=== PATIENT | female | born 1995 | race Hispanic/Latino ===

== ENCOUNTER 2018-06-21 04:01 | Inpatient (IN) | payer OTHER ==
[2018-06-21] MEDS ORDERED: BUTORPHANOL 1 MG/ML INJ IV PRN (04:05)
[2018-06-21] MEDS ORDERED: Ringers Lactate 1,000 ML IV PRN (04:05)
[2018-06-21] MEDS ORDERED: CARBOPROST TROME 250 MCG/ML IM PRN (04:05)
[2018-06-21] MEDS ORDERED: MIDAZOLAM HCL 2 MG/2 ML INJ IV PRN (04:05)
[2018-06-21] MEDS ORDERED: METHYLERGONOVINE 0.2MG/ML AMP IM PRN (04:05)
[2018-06-21] MEDS ORDERED: MEPERIDINE HCL 25 MG/0.5 ML IV PRN (04:05)
[2018-06-21] MEDS ORDERED: PROMETHAZINE 25 MG/ML VIAL IM PRN (04:05)
[2018-06-21 04:59] LABS: RPR Titer ND
[2018-06-21] MEDS ORDERED: Ringers Lactate 1,000 ML IV SCH (05:00)
[2018-06-21] MEDS ORDERED: OXYTOCIN/LR 20 UNIT/1,000 ML BAG IV SCH ×2 (05:00→13:00)
[2018-06-21 05:38] LABS: Absolute Lymphocytes (CBC) 3.3 K/uL (0.7-4.9); Absolute Monocytes 0.5 K/uL (0.1-1.3); Absolute Neutrophil 5.5 K/uL (1.8-8.0); Basophils % 0.6 % (0-1.3); Eosinophils % 0.9 % (0-4.4); Lymphocytes % 35.2 % (15.3-44.8); MCH 29.6 pg (27.0-35.0); MCV 85.2 fL (80-100); MPV 9.7 fL (7.6-11.3); Monocytes % 5.5 % (3.3-12.3); RBC Red Blood Cell Count 4.11 M/uL (3.86-4.86)
[2018-06-21 05:49] LABS: Urine Appearance CLOUDY; Urine Bilirubin NEGATIVE (NEG); Urine Blood NEGATIVE (NEG); Urine Color YELLOW; Urine Glucose NEGATIVE (NEG); Urine Protein TRACE (NEG); Urine Specific Gravity 1.025 (1.005-1.030); Urine Urobilinogen 0.2 mg/dL (0.2-1.0)
[2018-06-21 05:50] VITALS: BMI 38.4
[2018-06-21 05:53] LABS: Urine Microscopic Reflex ORDER UMIC
[2018-06-21 06:08] LABS: Urine Bacteria >50 /HPF (<20); Urine Culture Reflex Order REFLEXED; Urine Mucus 3+ /HPF (NONE SEEN); Urine RBC <5 /HPF (NONE SEEN)
[2018-06-21] MEDS ORDERED: FENTANYL/BUPIVACAINE/NS/PF 200 MCG/100 ML BAG EP PRN (07:21)
[2018-06-21] MEDS ORDERED: FENTANYL CITR 100 MCG/2 ML IV ONE (07:21)
[2018-06-21] MEDS ORDERED: BUPIVACAINE 0.25% PF 30 ML VIAL ONE (07:55)
[2018-06-21] MEDS ORDERED: FENTANYL CITR 100 MCG/2 ML ONE (12:07)
--- NOTE | 2018-06-21 12:24 | PREOPHP ---
Date of Admission: 06/21/2018 A 23-year-old 2, para 1, 39 weeks 2 days, for labor induction. Now 4.5 to 5 cm derrick r egularly. FHTs normal, reactive. Rh positive, immune to Rubella. Negative beta strep screen. Rupt ure of membranes. Labor talk given. Anticipate delivery relatively soon. Epidural anesthesia has b een requested and we will start hydration and get Anesthesia appear within the next half hour or so. RAYMOND/PADMINI Voice ID: [id number]
[2018-06-21] MEDS ORDERED: BISACODYL 10 MG RECTAL SUPP RECT PRN (12:57)
[2018-06-21] MEDS ORDERED: Oxycodone HCl/Acetaminophen 1 TAB TAB PO PRN (12:57)
[2018-06-21] MEDS ORDERED: DOCUSATE NA/SENNA CONC 1 TAB PO PRN (12:57)
[2018-06-21] MEDS ORDERED: ACETAMINOPHEN 500 MG TAB PO PRN (12:57)
[2018-06-21] MEDS ORDERED: DIPHENHYDRAMINE 25 MG TAB/CAP PO PRN (12:57)
--- NOTE | 2018-06-21 16:45 | PN ---
The patient is now 9, 9+, 0 to almost +1 station. Hope regularly. Baby looks good. Epidural is at 10 mL an hour. She says she is starting to feel some perineal discomfort. We will get Anesth esia to top her up, but we do not want her so numb, she cannot push. Full discussion. RAYMOND/PADMINI Voice ID: [id number] Report ID: [id number]
[2018-06-21] MEDS: IBUPROFEN 200 MG TAB PO PRN (21:01)
[2018-06-21 21:14] LABS: RPR (Rapid Plasma Reagin) NON-REACT (NON-REACT)
[2018-06-21] MEDS: Oxycodone HCl/Acetaminophen 1 TAB TAB PO PRN (23:36)
[2018-06-22] MEDS: IBUPROFEN 200 MG TAB PO PRN ×2 (03:00→13:15)
[2018-06-22] MEDS: Oxycodone HCl/Acetaminophen 1 TAB TAB PO PRN (05:17)
[2018-06-22 13:55] VITALS: BP 116/68; TEMP 97.5
[2018-06-24 20:43] LABS: HBsAG Nonreactive (Nonreactive)
--- NOTE | 2018-06-30 18:29 | DS ---
Date of Discharge: 06/22/2018 A 23-year-old 2, para 1, 39 weeks 2 days, Rh positive, immune to Rubella, negative beta strep screen, had uneventful delivery of a term , Apgars 9 and 9, routine blood loss. Epidural anes thesia was established. was afebrile, ambulating, voiding. Lochia is normal. The patien t dismissed to return in my office in 6 weeks for followup, to report any temperature elevation of 10 0 degrees or greater, severe pain, heavy bleeding, or any other type of abnormalities. No post epidu ral problems. Was given tramadol for analgesia although she may elect to take Motrin instead. Final Diagnoses: Term intrauterine , 39 weeks 2 days, vaginal delivery, epidural anesthesia . RAYMOND/PADMINI Voice ID: [id number] Report ID: [id number]
== END 2018-06-22 15:00 | disposition home or self-care (01) | DRG 807 ==
LOC: 2ND-WC 04:01
PROVIDERS: ADMIT Specialist; ATTEND Specialist
PROC: 10E0XZZ Delivery of Products of Conception, External Approach (ICD-10-PCS; principal; 2018-06-21)
PROC: 10907ZC Drainage of Amniotic Fluid, Therapeutic from Products of Conception, Via Natural or Artificial Opening (ICD-10-PCS; 2018-06-21)
DX: O80 Encounter for full-term uncomplicated delivery (principal); Z37.0 Single live birth; Z3A.39 39 weeks gestation of pregnancy
CPT/HCPCS: 36415; 81003; 81015; 85025; 86592; 87086; 87088; 87340; 99218; J2210; J2590; J3010

== ENCOUNTER 2020-12-02 21:03 | Emergency (ER) | payer OTHER, SELFPAY ==
--- OUTSIDE RECORDS SUMMARY | 2020-12-02 21:09 | XMS REPORT | Continuity of Care Document ---
:1995 Author Organization [facility] t Address [address] [place] [address] Care Team Providers Name Role Phone Wu Pleitez DO Attending Clinician Reynaldo FOSS Attending Clinician Unknown Attending Clinician Unavailable Dhruv FOSS, Gisela Attending Clinician Problems This patient has no known problems. Allergies, Adverse Reactions, Alerts This patient has no known allergies or adverse reactions. Medications This patient has no known medications. Procedures This patient has no known procedures. Encounters Start End Encounter Admission Attending Care Care Encounter Source Date/Time Date/Time Type Type Clinicians Facility Department ID 2020-10-01 2020-10-01 Patient SHIVAM Pleitez [id number] 00:00:00 00:00:00 [facility] [id number] Wu [facility] [id number] [place] [id number] 2019-11-09 2019-11-10 Emergency SHIVAM Jacobs [id number] 22:54:39 01:56:00 Angel Lara [id number] [place] [id number] [place] [id number] 2019-11-10 2019-11-10 Telephone Az, SHIVAM [id number] 00:00:00 00:00:00 Attending SPECIALTY [id number] [facility] [id number] CENTER AT [id number] ASHLEY Delgadillo [facility] 2019-09-05 2019-09-05 Office SHIVAM Bartlett [id number] 10:25:30 11:35:37 Visit Tracie Higgins [facility] [id number] REGIONAL [id number] MATERNAL [id number] & CHILD [address] [place] [place] [address] Results This patient has no known results.
--- NOTE | 2020-12-02 22:35 | EDPHYS ---
Physician Documentation [facility] Name: Tawnya García Age: 25 yrs Sex: Female : 1995 Arrival Date: 12/02/2020 Time: 21:09 Bed 4 Private MD: ED Physician Yovani Hernandez HPI: 12/03 04:48 This 25 yrs old Female presents to ER via Wheelchair with complaints of Ankle tw4 Injury. 04:48 The patient presents with an injury, pain. The complaints affect the left ankle. Onset: tw4 The symptoms/episode began/occurred today. Context: The problem was sustained at home, resulted from a mis-step by the patient. Context: resulted from a mis-step by the patient, on a floor edge. Associated signs and symptoms: The patient has no apparent associated signs or symptoms. Modifying factors: The symptoms are alleviated by nothing, the symptoms are aggravated by weight bearing, heat, movement, wearing shoes. Severity of symptoms: At their worst the symptoms were moderate, in the emergency department the symptoms are unchanged. The patient has not experienced similar symptoms in the past. 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 Flu vaccine is not up to date. - Social history:: Smoking status: Reported history of juuling and/or vaping. ROS: 12/03 04:48 Constitutional: Negative for fever, chills, and weight loss, Eyes: Negative for injury, tw4 pain, redness, and discharge, Cardiovascular: Negative for chest pain, palpitations, and edema, Respiratory: Negative for shortness of breath, cough, wheezing, and pleuritic chest pain, Abdomen/GI: Negative for abdominal pain, nausea, vomiting, diarrhea, and constipation, Back: Negative for injury and pain, Skin: Negative for injury, rash, and discoloration, Neuro: Negative for headache, weakness, numbness, tingling, and seizure. MS/extremity: Positive for injury or acute deformity, pain, swelling, tenderness, Negative for abrasion, bite, contusion, deformity, ecchymosis, erythema, laceration, puncture, rash. Exam: 04:48 Constitutional: This is a well developed, well nourished patient who is awake, alert, tw4 and in no acute distress. Head/Face: Normocephalic, atraumatic. Chest/axilla: Normal chest wall appearance and motion. Nontender with no deformity. No lesions are appreciated. Cardiovascular: Regular rate and rhythm with a normal S1 and S2. No gallops, murmurs, or rubs. Normal PMI, no JVD. No pulse deficits. Respiratory: Lungs have equal breath sounds bilaterally, clear to auscultation and percussion. No rales, rhonchi or wheezes noted. No increased work of breathing, no retractions or nasal flaring. Skin: Warm, dry with normal turgor. Normal color with no rashes, no lesions, and no evidence of cellulitis. Neuro: Awake and alert, GCS 15, oriented to person, place, time, and situation. Cranial nerves II-XII grossly intact. Motor strength 5/5 in all extremities. Sensory grossly intact. Cerebellar exam normal. Normal gait. 04:48 Musculoskeletal/extremity: Extremities: noted in the left lateral malleolus: decreased ROM, pain. Vital Signs: 12/02 21:27 Pulse 84; Resp 18 S; Temp 97.6(TE); Pulse Ox 95% on R/A; Weight 107.5 kg (R); Height 5 ca1 ft. 6 in. (167.64 cm) (R); Pain 7/10; 22:19 BP 126 / 85; Pulse 80; Resp 16; Pulse Ox 98% ; rr5 23:06 BP 121 / 70; Pulse 75; Resp 16; Pulse Ox 98% ; rr5 21:27 Body Mass Index 38.25 (107.50 kg, 167.64 cm) ca1 MDM: 21:51 Patient medically screened. tw4 12/03 04:48 Differential diagnosis: fracture, sprain. Data reviewed: vital signs, nurses notes, tw4 radiologic studies, plain films. Data interpreted: Pulse oximetry: Interpretation: normal. Test interpretation: by ED physician or midlevel provider: plain radiologic studies. Medication response: norco. Response to treatment: and as a result, I will discharge patient. Special discussion: I discussed with the patient/guardian in detail that at this point there is no indication for admission to the hospital. It is understood, however, that if the symptoms persist or worsen the patient needs to return immediately for re-evaluation. 12/02 21:30 Order name: Ankle Left 3 View XRAY ca1 12/02 22:53 Order name: Aircast Ankle Splint; Complete Time: 22:53 rr5 12/02 23:01 Order name: Crutches; Complete Time: 23:01 rr5 Administered Medications: 12/02 22:52 Drug: HYDROcodone-acetaminophen 5 mg-325 mg 1 tabs {Note: rass 0.} Route: PO; rr5 23:06 Follow up: Response: No adverse reaction; RASS: Alert and Calm (0) rr5 Disposition: 12/02/20 22:34 Discharged to Home. Impression: Sprain of tibiofibular ligament of left ankle. - Condition is Stable. - Discharge Instructions: Ankle Sprain. - Prescriptions for Ibuprofen 800 mg Oral Tablet - take 1 tablet by ORAL route every 12 hours As needed take with food; 20 tablet. - Medication Reconciliation Form, Thank You Letter, Antibiotic Education, Prescription Opioid Use, Work release form form. - Follow up: Private Physician; When: Upon discharge from the Emergency Department; Reason: Recheck today's complaints, Continuance of care, Re-evaluation by your physician. - Problem is new. - Symptoms have improved. Signatures: Dispatcher [employer] EDMS Yovani Hernandez MD MD tw4 Johnny Goyal RN RN rr5 Janel Borjas RN RN ca1 Corrections: (The following items were deleted from the chart) 22:53 22:33 Splint ordered. tw4 rr5 23:06 22:34 12/02/2020 22:34 Discharged to Home. Impression: Sprain of tibiofibular ligament rr5 of left ankle. Condition is Stable. Forms are Medication Reconciliation Form, Thank You Letter, Antibiotic Education, Prescription Opioid Use. Follow up: Private Physician; When: Upon discharge from the Emergency Department; Reason: Recheck today's complaints, Continuance of care, Re-evaluation by your physician. Problem is new. Symptoms have improved. tw4
--- NOTE | 2020-12-02 22:35 | ER ---
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 ca1 Coronavirus screen: Client denies travel out of the [place] in the last 14 days. At this time, the client does not indicate any symptoms associated with coronavirus-19. Ebola Screen: Patient negative for fever greater than or equal to 101.5 degrees Fahrenheit, and additional compatible Ebola Virus Disease symptoms Patient denies exposure to infectious person. Patient denies travel to an Ebola-affected area in the 21 days before illness onset. No symptoms or risks identified at this time. Initial Sepsis Screen: Does the patient meet any 2 criteria? No. Patient's initial sepsis screen is negative. Does the patient have a suspected source of infection? No. Patient's initial sepsis screen is negative. Risk Assessment: Do you want to hurt yourself or someone else? Patient reports no desire to harm self or others. Onset of symptoms was December 02, 2020. 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 Flu vaccine is not up to date. - Social history:: Smoking status: Reported history of juuling and/or vaping. Screenin:17 Abuse screen: Denies threats or abuse. Denies injuries from another. Nutritional rr5 screening: No deficits noted. Tuberculosis screening: No symptoms or risk factors identified. Fall Risk Gait- Impaired (20 pts.). Total Brizuela Fall Scale indicates No Risk (0-24 pts). Assessment: 22:15 General: Appears in no apparent distress. uncomfortable, Behavior is calm, cooperative, rr5 appropriate for age. Pain: Complains of pain in left foot left ankle Pain currently is 7 out of 10 on a pain scale. Quality of pain is described as aching, Pain began suddenly, Is intermittent. Neuro: Level of Consciousness is awake, alert, obeys commands, Oriented to person, place, time. Cardiovascular: Capillary refill < 3 seconds Patient's skin is warm and dry. Respiratory: Airway is patent Respiratory effort is even, unlabored, Respiratory pattern is regular, symmetrical. GI: No signs and/or symptoms were reported involving the gastrointestinal system. : No signs and/or symptoms were reported regarding the genitourinary system. EENT: No signs and/or symptoms were reported regarding the EENT system. Derm: Skin is intact, is healthy with good turgor, Skin temperature is warm. Musculoskeletal: Circulation, motion, and sensation intact. Capillary refill < 3 seconds. 22:56 Reassessment: Patient appears in no apparent distress at this time. Patient is alert, rr5 oriented x 3, equal unlabored respirations, skin warm/dry/pink. discharge instruction given and explained without complaints made. 23:05 Reassessment: reassess by ED provider may go home. rr5 Vital Signs: 21:27 Pulse 84; Resp 18 S; Temp 97.6(TE); Pulse Ox 95% on R/A; Weight 107.5 kg (R); Height 5 ca1 ft. 6 in. (167.64 cm) (R); Pain 7/10; 22:19 BP 126 / 85; Pulse 80; Resp 16; Pulse Ox 98% ; rr5 23:06 BP 121 / 70; Pulse 75; Resp 16; Pulse Ox 98% ; rr5 21:27 Body Mass Index 38.25 (107.50 kg, 167.64 cm) ca1 ED Course: 21:09 Patient arrived in ED. es 21:28 Triage completed. ca1 21:29 Arm band placed on right wrist. ca1 21:49 Johnny Goyal RN is Primary Nurse. rr5 21:51 Yovani Hernandez MD is Attending Physician. tw4 22:04 Ankle Left 3 View XRAY In Process Unspecified. EDMS 22:18 Patient has correct armband on for positive identification. Bed in low position. Call rr5 light in reach. Pulse ox on. NIBP on. 22:18 Ice pack to injury. rr5 22:53 No provider procedures requiring assistance completed. Patient did not have IV access rr5 during this emergency room visit. air cast ankle splint left ankle. Administered Medications: 22:52 Drug: HYDROcodone-acetaminophen 5 mg-325 mg 1 tabs {Note: rass 0.} Route: PO; rr5 23:06 Follow up: Response: No adverse reaction; RASS: Alert and Calm (0) rr5 Outcome: 22:34 Discharge ordered by . tw4 23:06 Discharged to home via wheelchair, with family. rr5 23:06 Condition: stable 23:06 Discharge instructions given to patient, Instructed on discharge instructions, follow up and referral plans. medication usage, Demonstrated understanding of instructions, follow-up care, medications, Prescriptions given X 1. 23:06 Patient left the ED. rr5 Signatures: Dispatcher [employer] Homa Sumner Terrence, MD MD tw4 Johnny Goyal RN RN rr5 Janel Borjas RN RN ca1
[2020-12-02] MEDS ORDERED: HYDROCODONE/APAP 5/325 MG TAB ONE (23:01)
[2020-12-03 00:26] VITALS: TEMP 97.6
[2020-12-03 00:28] VITALS: O2SAT 98
[2020-12-03 00:29] VITALS: BP 121/70
--- NOTE | 2020-12-03 10:07 | RAD REPORT ---
EXAM DESCRIPTION: RAD ANKLE LEFT 3 VIEW 12/02/20 TECHNIQUE: Three view x-ray left ankle FINDINGS: Soft tissue swelling is present. No fracture or dislocation is seen.
== END 2020-12-02 23:06 | disposition home or self-care (01) ==
LOC: ER 21:03
DX: S93.432A Sprain of tibiofibular ligament of left ankle, initial encounter (principal); X58.XXXA Exposure to other specified factors, initial encounter; Y92.009 Unspecified place in unspecified non-institutional (private) residence as the place of occurrence of the external cause
CPT/HCPCS: 99284

== ENCOUNTER 2021-08-25 02:12 | Inpatient (IN) | payer OTHER ==
[2021-08-25] MEDS ORDERED: BUTORPHANOL 1 MG/ML INJ IV PRN (03:30)
[2021-08-25] MEDS ORDERED: METHYLERGONOVINE 0.2MG/ML AMP IM PRN (03:30)
[2021-08-25] MEDS ORDERED: PROMETHAZINE INJ 25 MG/ML AMP IM PRN (03:30)
[2021-08-25] MEDS ORDERED: OXYTOCIN/LR 20 UNIT/1,000 ML BAG IV SCH ×2 (03:30→12:00)
[2021-08-25] MEDS ORDERED: Ringers Lactate 1,000 ML IV PRN (03:30)
[2021-08-25] MEDS ORDERED: CARBOPROST TROME 250 MCG/ML IM PRN (03:30)
--- OUTSIDE RECORDS SUMMARY | 2021-08-25 04:17 | XMS REPORT | Continuity of Care Document ---
:[address] [facility] [place] [place] t Address [address] [place] [address] Care Team Providers Name Role Phone PCP, DOES NOT HAVE A Primary Care Physician Unavailable Christopher PIKE Attending Clinician Unavailable Doctor Unassigned, Name Attending Clinician Unavailable Dhruv FOSS, N Attending Clinician Yadiel SETHI A Attending Clinician ProviderJoe Attending Clinician Unavailable Glendy SU, O Attending Clinician Wu Pleitez DO Attending Clinician REYNALDO Attending Clinician Unavailable Reynaldo OFSS Attending Clinician Unknown Attending Clinician Unavailable REYNALDO Admitting Clinician Unavailable Payers Payer Name Policy Type Policy Number Effective Date Expiration Date [facility] [id number] 2021 CHOICE MEDICAID 00:00:00 MEDICAID PENDING PENDING 2019 2021 00:00:00 00:00:00 Problems Condition Condition Condition Status Onset Resolution Last Treating Co mments Source Name Details Category Date Date Treatment Clinician Date Glucose Glucose Disease Active 2020-07 Univers tolerance tolerance 1-10 ity of test test 00:00: [place] abnormal abnormal 00 Medica l Branch Anemia of Anemia of Disease Active 2020-07 Uni vers mother in mother in 1-10 [place] ante[place] antepartum 00 Me dical Branch Pain of Pain of Disease Active 2020-07 [facility] round round 109 ity of ligament ligament 00:00: [place] during during 00 Medical Bran ch Multiparit Multiparit Disease Active U nivers y y 7-12 ity of 00:00: [place] 00 Medical Branch History of History of Disease Active U nivers migraine migraine 7-12 ity of 00:00: [place] 00 Medical Branch Obesity in Obesity in Disease Active U nivers 7-12 ity of 00:00: [place] 00 Medical Branch Need for Need for Disease Active Unive rs HPV HPV 2-25 [place] [facility] Allergies, Adverse Reactions, Alerts Allergy Allergy Status Severity Reaction(s) Onset Inactive Treating Comm ents Source Name Type Date Date Clinician NO KNOWN Drug Active Univers ALLERGIE Class ity of S [facility] Social History Social Habit Start Date Stop Date Quantity Comments Source ASSERTION 2020-12-07 University 00:00:00 [facility] History of tobacco 2014-09-05 Cigarette Smoker University of use 00:00:00 [facility] Exposure to Not sure [facility] SARS-CoV-2 (event) [facility] Alcohol intake 2021-05-21 2021-05-21 Ex-drinker [facility] 00:00:00 00:00:00 (finding) [facility] Cigarettes smoked 2021-01-20 2021-01-20 Univers ity of current (pack per 00:00:00 00:00:00 ) - Reported Branch Tobacco use and 2021-01-20 2021-01-20 Never used Universit y of exposure 00:00:00 00:00:00 [facility] Tobacco Comment 2021-01-20 2021-01-20 quit 1 year ago Univ ersity of 00:00:00 00:00:00 [facility] Sex [birth year] At [birth year] Universit y of 00:00:00 00:00:00 [facility] Smoking Status Start Date Stop Date Source Former smoker 2021-01-20 00:00:00 2021-01-20 00:00:00 Universi ty of [facility] Medications Ordered Filled Start Stop Current Ordering Indication Dosage Frequency Signature Comments Components Source Medication Medication Date Date Medication? Clinician (SIG) Name Name Iron Fum & 2020-07 Yes [id number] 1{capsu Take 1 Univers P-FA-Vit B 1-10 le} capsule by ity of & C No.9 00:00: mouth [place] (INTEGRA 00 daily. Medical PLUS) 125 Branch mg iron- 1 mg Cap Iron Fum & 2020-07 Yes [id number] 1{capsu Take 1 Univers P-FA-Vit B 1-10 le} capsule by ity of & C No.9 00:00: mouth [place] (INTEGRA daily. Medical PLUS) 125 Branch mg iron- 1 mg Cap Iron Fum & 2020-07 Yes [id number] 1{capsu Take 1 Univers P-FA-Vit B 1-10 le} capsule by ity of & C No.9 00:00: mouth [place] (INTEGRA 00 daily. Medical PLUS) 125 Branch mg iron- 1 mg Cap metroNIDAZO 2020-07- No [id number] 500mg Take 1 Univers LE 500 mg 07-20 tablet by ity of tablet 00:00: 05:59 mouth 2 [place] 00 :00 (two) Medical times Branch daily for 7 days. metroNIDAZO 2020-07- No [id number] 500mg Take 1 Univers LE 500 mg 07-20 tablet by ity of tablet 00:00: 05:59 mouth 2 [place] 00 :00 (two) Medical times Branch daily for 7 days. proMETHazin 2020- No [id number] 25mg Take 1 Univers e 25 mg 01-31 tablet by ity of tablet 00:00: 00:00 mouth [place] 00 :00 every 4 Medical (four) Branch hours as needed for Nausea and Vomiting (N/V). PNV 67-iron Yes [id number] 1{capsu Take 1 Univers ps-folate 7-16 le} capsule by ity of no.1-dha 00:00: mouth [place] (VITAFOL 00 daily. Medical ULTRA) 29 Branch mg iron- 1 mg-200 mg Cap PNV 67-iron Yes [id number] 1{capsu Take 1 Univers ps-folate 7-16 le} capsule by ity of no.1-dha 00:00: mouth [place] (VITAFOL 00 daily. Medical ULTRA) 29 Branch mg iron- 1 mg-200 mg Cap PNV 67-iron Yes [id number] 1{capsu Take 1 Univers ps-folate 7-16 le} capsule by ity of no.1-dha 00:00: mouth [place] (VITAFOL 00 daily. Medical ULTRA) 29 Branch mg iron- 1 mg-200 mg Cap PNV 67-iron Yes [id number] 1{capsu Take 1 Univers ps-folate 7-16 le} capsule by ity of no.1-dha 00:00: mouth [place] (VITAFOL 00 daily. Medical ULTRA) 29 Branch mg iron- 1 mg-200 mg Cap Immunizations Ordered Filled Immunization Date Status Comments Sour e Immunization Name Name [facility] 2019-09-05 Completed University of 00:00:00 [facility] 2019-09-05 Completed University of 00:00:00 [facility] 2019-09-05 Completed University of 00:00:00 [facility] 2019-09-05 Completed University of 00:00:00 [facility] TDAP 2018-05-22 Completed University of 00:00:00 [facility] TDAP 2018-05-22 Completed University of 00:00:00 [facility] TDAP 2018-05-22 Completed University of 00:00:00 [facility] TDAP 2018-05-22 Completed University of 00:00:00 [facility] Vital Signs Vital Name Observation Time Observation Value Comments Source Systolic blood 2021-05-20 15:15:00 128 mm[Hg] Univer sity of pressure [facility] Diastolic blood 2021-05-20 15:15:00 75 mm[Hg] Unive rsity of pressure [facility] Heart rate 2021-05-20 15:15:00 78 /min [facility] Body temperature 2021-05-20 15:15:00 36.5 [facility] Respiratory rate 2021-05-20 15:15:00 16 /min [facility] Body height 2021-05-20 15:15:00 167.6 cm [facility] Body weight 2021-05-20 15:15:00 106.686 kg [facility] BMI 2021-05-20 15:15:00 37.96 kg/m2 [facility] Procedures Procedure Date / Time Performing Clinician Source Performed AUTHORIZATION FOR 2021-06-03 06:01:00 Doctor Unasskristen, No Univ [facility] RELEASE OF PHI Name [facility] POCT URINALYSIS 2021-05-20 15:18:00 Kota Horner [facility] Encounters Start End Encounter Admission Attending Care Care Encounter Source Date/Time Date/Time Type Type Clinicians Facility Department ID 2021-06-10 2021-06-10 Outpatient R GLENDY [facility] [id number] [facility] 09:15:00 09:15:00 NIKITA ryany o f [facility] 2021-06-03 2021-06-03 Orders Doctor DOREEN [id number] Univers 00:00:00 00:00:00 Only Unassigned, SEVERINO [id number] ity of [place] [facility] [id number] Balaji as [id number] [address] 2021-05-29 2021-05-29 Telephone Dhruv [facility] [id number] Univers 00:00:00 00:00:00 Tracie Higgins SENIOR DESIGNER/ART DIRECTOR [id number] it y of [facility] [id number] Balaji as MATERNAL [id number] Med ical & CHILD [address] [place] [address] 2021-05-26 2021-05-26 Outpatient [facility] [id number] Univers 07:45:00 07:45:00 [id number] ity of [facility] 2021-05-21 2021-05-21 Case Yadiel [facility] [id number] Univers 00:00:00 00:00:00 Management Dary Damon SENIOR DESIGNER/ART DIRECTOR [id number] ity of [facility] [id number] Balaji as MATERNAL [phone] Med [facility] & CHILD [address] [place] [address] 2021-05-20 2021-05-20 Routine Provider, Sam [facility] 1 .[id number] Univers 09:03:31 09:45:45 Nikita Pike SENIOR DESIGNER/ART DIRECTOR [id number] ity of Visit [facility] [id number] Balaji as MATERNAL [id number] Med ical & CHILD [address] [place] [address] 2020-10-01 2020-10-01 Patient Maik [facility] [id number] 00:00:00 00:00:00 Outreach [facility] [id number] Located within [facility] [id number] [id number] 2019-11-09 2019-11-10 Emergency [facility] [id number] Univers 22:54[facility] 2019-11-09 2019-11-10 [facility] 1.2.840.114 [id number] 22:54:39 01:56:00 [facility] [id number] [place] 4.2.7.2.686 [place] [id number] 2019-11-10 2019-11-10 Telephone Unknown, [facility] [id number] 00:00:00 00:00:00 Attending SPECIALTY [id number] [facility] [id number] CENTER AT [id number] ASHLEY Elie LEENA 2019-09-05 2019-09-05 [facility] [id number] 10:25:30 11:35:37 Visit Tracie Gisela SENIOR DESIGNER/ART DIRECTOR [id number] [facility] [id number] MATERNAL [id number] & CHILD [address] [place] [address] Results Test Description Test Time Test Comments Results Result Comments Source POCT URINALYSIS W SPECIFIC GRAVITY 2021-05-20 15:21:00 Test Item Value Reference Range Interpretation Comme nts POCT U SP GRAV (test code = 3255) . 1.005-1.025 POCT PH U (test code = 3254) . 5-8 POCT U LEUK EST (test code = 3263) . Negative - Negative POCT U NIT (test code = 3262) . Negative - Negative POCT U PROT (test code = 3259) trace Negative - Negative POCT U GLU (test code = 3256) neg Negative - Negative POCT U KETONE (test code = 3258) . Negative - Negative POCT U UROBILI (test code = 3260) . 0.2-1 POCT U BILI (test code = 3261) . Negative - Negative POCT U BLD (test code = 3257) . Negative - Negative POCT U COLOR (test code = 3266) . POCT U APPEAR (test code = 3267) [facility]
[2021-08-25 05:07] VITALS: BMI 40.3
[2021-08-25 05:41] LABS: Absolute Lymphocytes (CBC) 3.5 K/uL (0.7-4.9); Hematocrit 34.5 % (36.0-45.0); Lymphocytes % 31.1 % (15.3-44.8); RBC Red Blood Cell Count 3.97 M/uL (3.86-4.86)
[2021-08-25 05:53] LABS: Urine Appearance CLOUDY (Clear); Urine Bilirubin NEGATIVE (Negative); Urine Blood NEGATIVE (Negative); Urine Color YELLOW (Yellow); Urine Glucose NEGATIVE (Negative); Urine Protein NEGATIVE (Negative); Urine Urobilinogen 0.2 mg/dL (0.2-1.0); Urine pH 6.5 (5.0-7.0)
[2021-08-25] MEDS: Ringers Lactate 1,000 ML IV SCH ×3 (05:57→10:26)
[2021-08-25 06:10] LABS: Urine Microscopic Reflex NO UMIC
[2021-08-25] MEDS ORDERED: INFLUENZA VACCINE (for 6+ mo) 0.5 ML DOSE IMVAC ONE (08:00)
[2021-08-25] MEDS ORDERED: 0.2% ROPIVACAINE (200 MG/100 ML) BAG EP ONE (08:04)
[2021-08-25] MEDS ORDERED: FENTANYL CITR 100 MCG/2 ML IV ONE (08:05)
[2021-08-25] MEDS ORDERED: ROPIVACAINE HCL 0.2% 20ML AMP EP ONE (09:00)
[2021-08-25] MEDS ORDERED: ROPIVACAINE HCL 100 ML EP ONE (09:03)
[2021-08-25] MEDS ORDERED: IBUPROFEN 600 MG TAB PO PRN (11:25)
[2021-08-25] MEDS ORDERED: BISACODYL 10 MG RECTAL SUPP RC PRN (11:25)
[2021-08-25] MEDS ORDERED: Oxycodone HCl/Acetaminophen 1 TAB TAB PO PRN (11:25)
[2021-08-25] MEDS ORDERED: DIPHENHYDRAMINE 25 MG TAB/CAP PO PRN (11:25)
[2021-08-25] MEDS ORDERED: DOCUSATE NA/SENNA CONC 1 TAB PO PRN (11:25)
[2021-08-25] MEDS ORDERED: ACETAMINOPHEN 500 MG TAB PO PRN (11:25)
--- NOTE | 2021-08-25 11:40 | PREOPHP ---
Date of Admission: 08/25/2021 A 26-year-old 3, para 2, 39 weeks 2 days for induction. Pros and cons is thoroughly discusse d prior to admission. Family History: Sister with hypertension. A nephew with autism. The patient has a history of migra moni. She has had her appendix removed. Allergies: SHE HAS NO ALLERGIES. Social History: No smoking. Medications: No medications prior to admission other than vitamins and iron. Physical Examination: HEENT: Clear pupils equal, round, reactive to light and accommodation. Conjunctivae well perfused. No oral, lingual, or buccal lesions. Chest: Lungs clear. Heart: Without murmurs, thrills, heaves, or rubs. Breasts: Without masses on previous visits. Abdomen: Massively obese. Extremities: Clear without edema, cyanosis, or clubbing. Pelvic: Patient is 3 cm, 60% effaced, somewhat posterior rupture of membranes, clear fluid, -1 stati on on the vertex. Very, very minimal meconium. FHTs normal, reactive. Admission and labor talk given. She is Rh positive, immune to rubella, negative strep, negative COVI D, anticipate delivery later today. ISABELLAC/MODL Voice ID: [id number]
[2021-08-25] MEDS: Oxycodone HCl/Acetaminophen 1 TAB TAB PO PRN (15:26)
[2021-08-25] MEDS ORDERED: KETOROLAC 30 MG/ML INJ IM PRN (18:24)
[2021-08-25] MEDS ORDERED: KETOROLAC 30 MG/ML INJ ONE (18:29)
--- NOTE | 2021-08-25 23:12 | OP ---
Surgeon: Wolf Suarez MD Procedure In Detail: Tawnya García, a 26-year-old 3, para 2, at 39 weeks 2 days, Rh positive, immune to rubella, negative strep, negative COVID. 3 cm this morning, ruptured membranes, very mini mal meconium, no particulate matter, basically clear term fluid to minimal meconium. During the labo r requested and received a 4 cm epidural anesthesia, second stage of approximately 20 minutes. Spont aneous vaginal delivery of an estimated 6.5 to 7 pounds female, Apgars 9 and 9. No episiotomy. No l aceration. Schultze delivery of the placenta less than 200 cc blood loss. The patient tolerated all procedures well. Final Diagnoses: Term intrauterine , 39 weeks 2 days, labor induction, vaginal delivery, ep idural anesthesia. RAYMOND/PADMINI Voice ID: [id number] Report ID: [id number]
[2021-08-26 00:49] LABS: RPR (Rapid Plasma Reagin) NON-REACT (NON-REACT)
[2021-08-26] MEDS: Oxycodone HCl/Acetaminophen 1 TAB TAB PO PRN ×2 (01:25→09:29)
--- NOTE | 2021-08-26 07:37 | DS ---
Hospital Course: Tawnya García is a 26-year-old, 3, para 2, 39 weeks 2 days. Delivered a 7-p ound female, Apgars 9 and 9. No episiotomy. No laceration. Schultze delivery of the placenta, whic h was inspected and noted to be intact and normal. Less than 200 cc blood loss. Rh positive, immune to rubella, negative strep, negative COVID. ; afebrile, ambulating, voiding. Lochia is n ormal. She had some back discomfort in the area of the epidural, but took a shower and took Percocet . Now, the pain has gone. She has had her Tdap immunization during the . Full post discha rge instructions given. She is thinking about having a tubal and was signed a permit as soon as poss ible and of course, she knows she will see me at 5-6 weeks and then go to [facility] for a tubal over there. Full discussion. Final Diagnoses: Term intrauterine at 39 weeks 2 days, vaginal delivery, epidural anesthes ia. RAYMOND/PADMINI Voice ID: [id number] Report ID: [id number]
[2021-08-26 09:57] VITALS: TEMP 97.8
[2021-08-26 12:01] VITALS: BP 129/72
[2021-08-28 03:36] LABS: HBsAG Nonreactive (Nonreactive)
== END 2021-08-26 13:15 | disposition home or self-care (01) | DRG 807 ==
LOC: 2ND-WC 04:14
PROVIDERS: ADMIT Specialist; ATTEND Specialist
PROC: 10E0XZZ Delivery of Products of Conception, External Approach (ICD-10-PCS; principal; 2021-08-25)
PROC: 10907ZC Drainage of Amniotic Fluid, Therapeutic from Products of Conception, Via Natural or Artificial Opening (ICD-10-PCS; 2021-08-25)
PROC: 3E033VJ Introduction of Other Hormone into Peripheral Vein, Percutaneous Approach (ICD-10-PCS; 2021-08-25)
DX: O80 Encounter for full-term uncomplicated delivery (principal); Z37.0 Single live birth; Z3A.39 39 weeks gestation of pregnancy
CPT/HCPCS: 36415; 81003; 85025; 86592; 86850; 86900; 86901; 87340; 90471; 90715; J2210; J2590; J2795; J3010; J7120; U0003

== ENCOUNTER 2024-03-11 00:19 | Emergency (ER) | payer OTHER ==
--- OUTSIDE RECORDS SUMMARY | 2024-03-11 00:22 | XMS REPORT | Continuity of Care Document ---
Author Name Unknown Address [address] [facility] [address] [place] [address] [facility] Address [address] [facility] [address] [place] [address] Care Team Providers Care Euclid Operator Name Role Phone Luciana Sim Primary Care Physician ROBBI LAWRENCE Attending Clinician Unavail able STEPHANY WASHBURN Attending Clinician Unavailab JEFF Prince Attending Clinician Unavailable GEORGINA FLORES Attending Clinician Unavailable Georgina Flores MD Attending Clinician [phone] Doctor Unassigned, [place] Attending Clinician U Robbi Wilson MD Attending Clinician [phone] Only, Adc Test Attending Clinician Unavailable GIANNI BAIG Attending Clinician Unavailable Pgy2 Attending Clinician Unavailable Gianni Baig MD Attending Clinician [phone] Kota Marcus Attending Clinician + [phone] Provider, Sam Temnéstor Attending Clinician Vandana NIKITA Mariee Attending Clinician Unavail able Tracie Lr Attending Clinician [phone] Dary Cotto CNM Attending Clinician [phone] Nikita Camarena Attending Clinician + MARYJANE, TRACIE N Attending Clinician Unavailabl jared Foy MD, Darlin Sosa Attending Clinician [phone], [facility] Room Attending Clinician Unavailgiovanna Hatfield MD, Pavel Moyer Attending Clinician [phone] KOTA HOLLIS Attending Clinician Unavailab digna Lab, Adc Fam Pob I Attending Clinician Unavailab Olena Ramirez Attending Clinician [phone] OLENA BOOTH Attending Clinician Unavailcliff Mcmillan GROOMING SALON MANAGER, Edin Attending Clinician [phone] Porfirio CASTRO, Neela Lima Attending Clinician [phone] MASSIMO JOLLY Attending Clinician Unavail able Pcp, Patient Does Not Have A Attending Clinician Kings Pleitez DO Attending Clinician Rhys Holloway Attending Clinician [phone] RHYS JACOBS Attending Clinician Unavailable Unknown, Attending Attending Clinician Unavailab ROBBI Rodriguez Admitting Clinician Unavail able DARLIN FOY Admitting Clinician Unavailable GEORGINA FLORES Admitting Clinician Unavailable Mark CASTRO, Georgina Admitting Clinician [phone] Robbi Lawrence MD Admitting Clinician Darlin Foy MD Admitting Clinician [phone] RHYS JACOBS Admitting Clinician Unavailable Payers Payer Name Policy Type Policy Number Effective Date Expirati on Date Source [facility] MEDICAID [id number] 2021 00:00:00 [facility] 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 SUPPORT 94 ON 9 [id number] 2023-07-12 00:00:00 [facility] [employer] 2 [id number] 2023-12-21 00:00:00 MEDICAID [facility] [id number] 2021-01-09 00:00:00 MEDICAID PENDING PENDING 2021-01-20 00:00:00 Problems Condition Name Condition Details Condition Category Status Onset Date Resolution Date Last Treatment Date Treating Clinician Comments Source Melena Melena Disease Active 2022-1 0-28 00:00: 00 [facility] Hematochez ia Hematochez ia Disease Active 2021-07 0-28 00:00: 00 [facility] Sterilizat ion Sterilizat ion Disease Active 3-24 00:00: 00 Overview: Formattin g of this note might be different from the original. Added automatic ally from request for surgery [id number] [facility] Glucose tolerance test abnormal Glucose tolerance test abnormal Disease Active 2020-07 00:00: 00 [facility] Anemia of mother in , antepartum Anemia of mother in , antepartum Disease Active 2020-07 00:00: 00 [facility] Pain of round ligament during Pain of round ligament during Disease Active 2020-07 00:00: 00 [facility] Multiparit y Multiparit y Disease Active 01-20 00:00: 00 [facility] History of migraine History of migraine Disease Active 01-20 00:00: 00 [facility] Obesity in Obesity in Disease Active 01-20 00:00: 00 [facility] Need for HPV vaccinatio n Need for HPV vaccinatio n Disease Active 09-05 00:00: 00 [facility] Allergies, Adverse Reactions, Alerts Allergy Name Allergy Type Status Severity Reaction(s) Onset Date Inactive Date Treating Clinician Comments Source NO KNOWN ALLERGIE S Drug Class Active [facility] Social History Social Habit Start Date Stop Date Quantity Comments Source History of tobacco use 2014-09-05 00:00:00 Cigarette Smoker [facility] Exposure to SARS-CoV-2 (event) 2022-05-09 00:00:00 2022-05-19 11:26:00 Not sure [facility] Cigarettes smoked current (pack per day) - Reported 2022-05-19 00:00:00 2022-05-19 00:00:00 [facility] Tobacco use and exposure 2022-05-19 00:00:00 2022-05-19 00:00:00 Smokeless tobacco non-user [facility] Alcohol intake 2022-05-19 00:00:00 2022-05-19 00:00:00 Ex-drinker (finding) [facility] Tobacco Comment 2022-05-19 00:00:00 2022-05-19 00:00:00 quit 1 year ago/vapes [facility] Sex Assigned At 1995 00:00:00 1995 00:00:00 [facility] Smoking Status Start Date Stop Date Source Ex-smoker 2022-05-19 00:00:00 2022-05-19 00:00:00 U [facility] Medications Ordered Medication Name Filled Medication Name Start Date Stop Date Current Medication? Ordering Clinician Indication Dosage Frequency Signature (SIG) Comments Components Source lactated ringers IV infusion 1,000 mL 2021-07 17:00: 00 Yes 1000mL at 100 mL/hr, 1,000 mL, IV Infusion, CONTINUOUS , Starting on Wed05/22/22 at 1100, Until Discontinu ed, Routine, PACU [facility] ondansetron (ZOFRAN (PF)) injection 4 mg 2021-07 16:45: 26 Yes 4mg 4 mg, Slow IV Push, PRN, 1 dose, Starting on Wed05/22/22 at 1045, Until Discontinu ed, Routine, Nausea and Vomiting (N/V), PACU [facility] water for irrigation irrigation solution 2021-07 15:54: 00 05-22 16:24 :52 No PRN, Starting on Wed05/22/22 at 0954, Until Wed05/22/22 at 1024, Routine, Intra-op [facility] simethicone (GAS RELIEF (SIMETHICON E)) 40 mg/0.6 mL drops 2021-07 15:54: 00 05-22 16:24 :52 No PRN, Starting on Wed05/22/22 at 0954, Until Wed05/22/22 at 1024, Routine, Intra-op [facility] lactated ringers IV infusion 1,000 mL 2021-07 14:30: 00 05-22 14:31 :00 No 1000mL at 42 mL/hr, 1,000 mL, IV Infusion, ONCE, 1 dose, On Wed05/22/22 at 0830, Routine, DSU Pre-op [facility] No known medications 2021-07 08:21: 37 No No known medication s [facility] Dose Unknown 8-18 00:00: 00 No TAKE BY MOUTH 1 TABLET EVERY 4 HOURS NEEDED FOR NAUSEA AND VOMITING 01-08 00:00: 00 No Dose Unknown 01-08 00:00: 00 No TAKE 1 TABLET BY MOUTH EVERY 6 (SIX) HOURS NEEDED (ALTERNATE WITH TYLENOL FOR PAIN). 01-08 00:00: 00 No HYDROcodone -acetaminop hen (NORCO 5) 5-325 mg tablet 1 tablet 11-04 14:30: 00 11-04 14:32 :00 No 1{tbl} 1 tablet, Oral, ONCE, 1 dose, On Wed11/04/21 at 0930, Routine, PACU [facility] HYDROcodone -acetaminop hen (NORCO) 10-325 mg tablet 1 tablet 11-04 14:29: 47 Yes 1{tbl} 1 tablet, Oral, PRN, 1 dose, Starting on Wed11/04/21 at 0929, Until Discontinu ed, Routine, Pain (scale 7-10), DSU Recovery [facility] ibuprofen (IBU) tablet 800 mg 11-04 14:29: 47 Yes 800mg 800 mg, Oral, PRN, 1 dose, Starting on Wed11/04/21 at 0929, Until Discontinu ed, Routine, Pain (scale 4-6), DSU Recovery [facility] acetaminoph en (TYLENOL) tablet 650 mg 11-04 14:29: 47 Yes 650mg 650 mg, Oral, PRN, 1 dose, Starting on Wed11/04/21 at 0929, Until Discontinu ed, Routine, Pain (scale 1-3), DSU Recovery [facility] HYDROmorphO ne (DILAUDID) injection 0.2 mg 11-04 14:29: 43 Yes .2mg 0.2 mg, Slow IV Push, Q5MIN PRN, 10 doses, Starting on Wed11/04/21 at 0929, Until Discontinu ed, Routine, Pain (scale 7-10), PACU
Us e approved by (Faculty): PACU USE -ANESTHESI A SERVICE-HY DROMORPHON E INJECTIONS [facility] FENTanyl PF (SUBLIMAZE (PF)) injection 25 mcg 11-04 14:29: 43 Yes 25ug 25 mcg, Slow IV Push, Q5MIN PRN, 4 doses, Starting on Wed11/04/21 at 0929, Until Discontinu ed, Routine, Pain (scale 4-6), PACU [facility] ondansetron (ZOFRAN (PF)) injection 4 mg 11-04 14:29: 43 Yes 4mg 4 mg, Slow IV Push, PRN, 1 dose, Starting on Wed11/04/21 at 0929, Until Discontinu ed, Routine, Nausea and Vomiting (N/V), PACU [facility] bupivacaine (preserv free) (SENSORCAIN E MPF) 0.25 % (2.5 mg/mL) injection 11-04 13:07: 00 Yes PRN, Starting on Wed11/04/21 at 0807, Until Discontinu ed, Routine, Intra-op [facility] acetaminoph en (TYLENOL) tablet 1,000 mg 11-04 10:15: 58 Yes 1000mg 1,000 mg, Oral, PRE-PROCED URE ONCE, 1 dose, Starting on Wed11/04/21 at 0515, Until Discontinu ed, Routine, post op pain, DSU Pre-op [facility] acetaminoph en 325 mg tablet 11-04 00:00: 00 Yes [id number] 650mg Take 2 tablets by mouth every 6 (six) hours as needed for Pain (scale 4-6) or Alternate with ibuprofen for pain scale 4-6. [facility] ibuprofen 600 mg tablet 11-04 00:00: 00 Yes [id number] 600mg Take 1 tablet by mouth every 6 (six) hours as needed (Alternate with Tylenol for pain). [facility] HYDROcodone -acetaminop hen 5-325 mg tablet 11-04 00:00: 00 11-12 04:59 :00 No [id number] 1{tbl} Take 1 tablet by mouth every 6 (six) hours as needed for Pain (scale 4-6) or Pain (scale 7-10) for up to 7 days. Indication s: acute pain [facility] Iron Fum & P-FA-Vit B & C No.9 (INTEGRA PLUS) 125 mg iron- 1 mg Cap 2020-07- 00:00: 00 Yes [id number] 1{capsu le} Take 1 capsule by mouth daily. [facility] PNV 67-iron ps-folate no.1-dha (VITAFOL ULTRA) 29 mg iron- 1 mg-200 mg Cap 01-24 00:00: 00 Yes [id number] 1{capsu le} Take 1 capsule by mouth daily. [facility] Vital Signs Vital Name Observation Time Observation Value Comments S ource Systolic blood pressure 2022-05-22 17:00:00 109 mm[Hg] [facility] Diastolic blood pressure 2022-05-22 17:00:00 68 mm[Hg] [facility] Heart rate 2022-05-22 16:55:00 61 /min [facility] Respiratory rate 2022-05-22 16:55:00 18 /min [facility] Oxygen saturation in Arterial blood by Pulse oximetry 2022-05-22 16:55:00 100 /min [facility] Body temperature 2022-05-22 16:23:00 36.11 Hannah [facility] Body height 2022-05-12 14:15:[address] [facility] Body weight 2022-05-12 14:15:[address] [facility] BMI 2022-05-12 14:15:00 34.87 kg/m2 [facility] Systolic blood pressure 2022-05-22 16:45:00 104 mm[Hg] [facility] Diastolic blood pressure 2022-05-22 16:45:00 65 mm[Hg] [facility] Heart rate 2022-05-22 16:45:00 67 /min [facility] Respiratory rate 2022-05-22 16:45:00 11 /min [facility] Oxygen saturation in Arterial blood by Pulse oximetry 2022-05-22 16:45:00 98 /min [facility] Body temperature 2022-05-22 16:23:00 36.11 Hannah [facility] Body height 2022-05-12 14:15:[address] [facility] Body weight 2022-05-12 14:15:[address] [facility] BMI 2022-05-12 14:15:00 34.87 kg/m2 [facility] Oxygen saturation in Arterial blood by Pulse oximetry 2021-11-04 15:05:00 98 /min [facility] Systolic blood pressure 2021-11-04 14:30:00 112 mm[Hg] [facility] Diastolic blood pressure 2021-11-04 14:30:00 72 mm[Hg] [facility] Heart rate 2021-11-04 14:30:00 70 /min [facility] Respiratory rate 2021-11-04 14:30:00 18 /min [facility] Body temperature 2021-11-04 14:10:00 36.22 Hannah [facility] Body height 2021-11-04 10:21:[address] [facility] Body weight 2021-11-04 10:21:[address] [facility] BMI 2021-11-04 10:21:00 38.39 kg/m2 [facility] Systolic blood pressure 2021-11-04 14:15:00 111 mm[Hg] [facility] Diastolic blood pressure 2021-11-04 14:15:00 66 mm[Hg] [facility] Heart rate 2021-11-04 14:15:00 68 /min [facility] Respiratory rate 2021-11-04 14:15:00 11 /min [facility] Oxygen saturation in Arterial blood by Pulse oximetry 2021-11-04 14:15:00 100 /min [facility] Body temperature 2021-11-04 14:10:00 36.22 Hannah [facility] Body height 2021-11-04 10:21:[address] [facility] Body weight 2021-11-04 10:21:[address] [facility] BMI 2021-11-04 10:21:00 38.39 kg/m2 [facility] Systolic blood pressure 2021-10-02 19:41:00 114 mm[Hg] [facility] Diastolic blood pressure 2021-10-02 19:41:00 76 mm[Hg] [facility] Heart rate 2021-10-02 19:41:00 85 /min [facility] Body temperature 2021-10-02 19:41:00 37.06 Hannah [facility] Respiratory rate 2021-10-02 19:41:00 18 /min [facility] Body height 2021-10-02 19:41:[address] [facility] Body weight 2021-10-02 19:41:[address] [facility] BMI 2021-10-02 19:41:00 37.93 kg/m2 [facility] Weight Measured 2021-01-18 14:13:00 241.80 pounds Height Measured 2021-01-18 14:13:00 66.20 inches Body Temperature 2021-01-18 14:13:00 98.20 degrees Heart Rate 2021-01-18 14:13:00 56.00 /min Respiratory Rate 2021-01-18 14:13:00 BP Systolic 2021-01-18 14:13:00 114 mm[Hg] BP Diastolic 2021-01-18 14:13:00 73 mm[Hg] Procedures Procedure Date / Time Performed Performing Clinician Source COLONOSCOPY 2022-05-22 15:27:00 Georgina Flores [facility] POCT TEST 2022-05-22 14:28:00 John Early [facility] POCT TEST 2022-05-22 14:28:00 John Early [facility] COLONOSCOPY (ENDO) 2022-05-22 13:09:18 Wolf Suarez [facility] COLONOSCOPY (ENDO) 2022-05-22 13:09:18 Wolf Suarez [facility] DAY SURGERY - [facility] 2022-05-22 06:01:00 Doctor Vandana ssigned, [place] [facility] ASSIGNMENT OF BENEFITS 2022-05-08 18:44:00 Docto r Unassigned, [place] [facility] REFERRAL- REQUEST/RESPONSE 2022-04-17 05:01:00 Doctor Unassigned, [place] [facility] SURGICAL PATHOLOGY EXAM 2021-11-04 13:24:00 Adria Lawrence [facility] LAPAROSCOPIC SALPINGECTOMY 2021-11-04 11:58:00 [facility] 2021-11-04 10:39:00 Ly, Sheeba [facility] CBC WITH DIFF 2021-11-04 10:39:00 Ly, Sheeba [facility] HB ABO GROUPING 2021-11-04 10:38:00 Ly, Sheeba [facility] HB ABO GROUPING 2021-11-04 10:38:00 Ly, Sheeba [facility] POCT TEST 2021-11-04 10:30:00 Ly, Sheeba U [facility] POCT TEST 2021-11-04 10:30:00 Ly, Sheeba U [facility] CONSENT/REFUSAL FOR DIAGNOSIS AND TREATMENT 2021-11-04 10:14:08 Doctor Unassigned, [place] [facility] CONSENT/REFUSAL FOR DIAGNOSIS AND TREATMENT 2021-11-04 10:14:08 Doctor Unassigned, [place] [facility] ASSIGNMENT OF BENEFITS 2021-11-04 10:13:49 Docto r Unassigned, [place] [facility] ASSIGNMENT OF BENEFITS 2021-11-04 10:13:49 Docto r Unassigned, [place] [facility] SURGERY [facility] 2021-11-04 05:01:00 Doct or Unassigned, [place] [facility] STERILIZATION CONSENT FORM 2021-10-02 05:01:00 Doctor Unassigned, [place] [facility] DISCLOSURE AND CONSENT MEDICAL & SURGICAL PROCEDURES - [facility] 2021-10-02 05:01:00 Doctor Unassigned, [place] [facility] STERILIZATION CONSENT FORM 2021-10-02 05:01:00 Doctor Unassigned, [place] [facility] DISCLOSURE AND CONSENT MEDICAL & SURGICAL PROCEDURES - [facility] 2021-10-02 05:01:00 Doctor Unassigned, [place] [facility] Plan of Care Planned Activity Planned Date Details Comments Source Goal Plan of Care Note [code = 75987-3] Goal Plan of Care Note [code = 84076-5] Goal Plan of Care Note [code = 02497-1] Goal Plan of Care Note [code = 47709-0] Goal Plan of Care Note [code = 20864-8] Goal Plan of Care Note [code = 19075-0] Goal Plan of Care Note [code = 88328-5] Encounters Start Date/Time End Date/Time Encounter Type Admission Type Attending Clinicians [facility] Facility Care Department Encounter ID Source 2021-10-03 14:45:46 Outpatient R ROBBI LAWRENCE [facility] [id number] [facility] 2021-10-02 15:59:06 Outpatient ROBBI LAWRENCE [facility] [id number] [facility] 2021-05-13 09:31:33 Outpatient X [facility] YULY [id number] [facility] 2021-05-13 09:27:12 Emergency [facility] [id number] [facility] 2021-05-08 19:34:45 Emergency [facility] [id number] [facility] 2024-03-24 09:30:00 2024-03-24 09:30:00 Outpatient STEPHANY WASHBURN [id number] Lucy Elaine 2024-01-18 16:30:00 2024-01-18 16:30:00 Outpatient JEFF HAYES [id number] Lucy Elaine 2022-06-03 13:15:00 2022-06-03 13:15:00 Outpatient R GEORGINA FLORES [facility] [id number] [facility] 2022-05-22 08:17:00 2022-05-22 11:05:00 Outpatient GEORGINA HOFFMAN [facility] [id number] [facility] 2022-05-22 08:17:00 2022-05-22 11:05:00 Hospital Encounter Georgina Flores [facility] 1.2840.114 350.1.13.10 4.2.7.2.686 [id number] [facility] 2022-05-22 09:41:00 2022-05-22 10:50:00 Surgery [facility] 1.2840.114 350.1.13.10 4.2.7.2.686 [id number] [facility] 2022-05-22 00:00:00 2022-05-22 00:00:00 Orders Only Doctor Unassigned, [place] [facility] 1.2840.114 350.1.13.10 4.2.7.2.686 [id number] [facility] 2022-05-08 13:45:00 2022-05-08 14:29:55 Outpatient GEORGINA HOFFMAN [facility] [id number] [facility] 2022-05-08 00:00:00 2022-05-08 00:00:00 Orders Only Doctor Unassigned, [place] [facility] 1.2840.114 350.1.13.10 4.2.7.2.686 [id number] [facility] 2022-04-17 00:00:00 2022-04-17 00:00:00 Orders Only Doctor Unassigned, [place] [facility] 1.2840.114 350.1.13.10 4.2.7.2.686 [id number] [facility] 2022-01-08 00:00:00 2022-01-08 00:00:00 Outpatient Visit [id number] 2021-11-04 05:13:00 2021-11-04 10:05:00 Outpatient R ROBBI LAWRENCE [facility] [id number] [facility] 2021-11-04 05:13:00 2021-11-04 10:05:00 Hospital Encounter [facility] 1.2.840.114 350.1.13.10 4.2.7.2.686 [id number] [facility] 2021-11-04 07:00:00 2021-11-04 09:20:00 Surgery [facility] [id number] 350.1.13.10 4.2.7.2.686 [id number] [facility] 2021-11-04 00:00:00 2021-11-04 00:00:00 Orders Only Doctor Unassigned, [place] [facility] 1.2.840.114 350.1.13.10 4.2.7.2.686 [id number] [facility] 2021-11-01 11:30:00 2021-11-01 11:45:00 Laboratory Only Only, Adc Test LawrenceRobbi short [facility] 1.2.840.114 350.1.13.10 4.2.7.2.686 [id number] [facility] 2021-11-01 11:30:00 2021-11-01 11:30:00 [id number] 2021-11-01 00:00:00 2021-11-01 00:00:00 Outpatient R ROBBI LAWRENCE [facility] [id number] [facility] 2021-10-02 14:45:00 2021-10-02 15:48:43 Outpatient R MYNOR BAIGTTE [facility] [id number] [facility] 2021-10-02 14:45:00 2021-10-02 15:48:43 Office Visit Pgy2 Gianni Baig [facility] 1..114 350.1.13.10 4.2.7.2.686 [id number] [facility] 2021-09-18 00:00:00 2021-09-18 00:00:00 Telephone Kota Hollis [facility] MATERNAL & CHILD [facility] 1..114 350.1.13.10 4.2.7.2.686 [id number] [facility] 2021-09-18 00:00:00 2021-09-18 00:00:00 Telephone Provider, Sam Diaz [facility] CHILD [facility] 1..114 350.1.13.10 4.2.7.2.686 [id number] [facility] 2021-06-10 09:15:00 2021-06-10 09:15:00 Outpatient R [facility] [id number] [facility] 2021-06-10 09:15:00 2021-06-10 09:15:00 Outpatient R NIKITA PALMER [facility] [id number] [facility] 2021-06-03 00:00:00 2021-06-03 00:00:00 Orders Only Doctor Unassigned, [place] [facility] ..114 350.1.13.10 4.2.7.2.686 [id number] [facility] 2021-05-29 00:00:00 2021-05-29 00:00:00 Telephone Tracie Wesley [facility] CHILD [facility] 1..840.114 350.1.13.10 4.2.7.2.686 [id number] [facility] 2021-05-21 00:00:00 2021-05-21 00:00:00 Case Management Dary Cotto [facility] CHILD [facility] 1..840.114 350.1.13.10 4.2.7.2.686 [id number] [facility] 2021-05-20 09:15:00 2021-05-20 09:45:45 Outpatient R NIKITA PALMER [facility] [id number] [facility] 2021-05-20 09:03:31 2021-05-20 09:45:45 Routine Visit Provider, Nikita Feliciano [facility] & CHILD [facility] 1..840.114 350.1.13.10 4.2.7.2.686 [id number] [facility] 2021 10:00:00 2021 10:00:00 Outpatient R [facility] [id number] [facility] 2021 07:45:00 2021 07:45:00 Outpatient R TRACIE WESLEY [facility] [id number] [facility] 2021-05-12 13:45:00 2021-05-12 13:45:00 Outpatient R [facility] [id number] [facility] 2021-05-07 00:00:00 2021-05-07 00:00:00 Case Management Darlin Foy [facility] 1..840.114 350.1.13.10 4.2.7.2.686 [id number] [facility] 2021-05-05 13:11:00 2021-05-05 15:00:00 Emergency Foy, Darlin Ian [facility] 1.2840.114 350.1.13.10 4.2.7.2.686 [id number] [facility] 2021-05-05 00:00:00 2021-05-05 00:00:00 Orders Only Doctor Unassigned, [place] [facility] 1.0.114 350.1.13.10 4.2.7.2.686 [id number] [facility] 2021-04-11 13:09:24 2021-04-11 14:08:19 Lubrication Servicer Visit 5, [facility]..114 350.1.13.10 4.2.7.2.686 [id number] [facility] 2021-04-11 13:00:00 2021-04-11 13:00:00 Outpatient P [facility] [id number] [facility] 2021-04-09 14:30:36 2021-04-09 15:09:44 Routine Visit Provider, Mekhi-Rmchp Nikita Gamez [facility] 1..114 350.1.13.10 4.2.7.2.686 [id number] 107 [id number] [facility] 2021-04-09 14:30:00 2021-04-09 14:30:00 Outpatient NIKITA RODARTE [facility] [id number] [facility] 2021-04-08 09:30:00 2021-04-08 09:30:00 Outpatient KOTA STRONG [facility] [id number] [facility] 2021-04-03 00:00:00 2021-04-03 00:00:00 Telephone Padmaja Hollisrose Kain [facility] & [facility]ILD [facility] 1..114 350.1.13.10 4.2.7.2.686 [id number] [facility] 2021-03-12 12:53:24 2021-03-12 13:08:24 Routine Visit Evens Kota Finnegan [facility] 1..114 350.1.13.10 4.2.7.2.686 [id number] [facility] 2021-03-12 12:45:00 2021-03-12 12:45:00 Outpatient R [facility] [id number] [facility] 2021-02-20 13:01:59 2021-02-20 13:21:59 Laboratory Only Lab, Adc Fam Pob I Lydia [facility] 1.84.114 350.1.13.10 4.2.7.2.686 [id number] [facility] 2021-02-20 13:00:00 2021-02-20 13:00:00 Outpatient Kain BOOTH [facility] [id number] [facility] 2021-02-20 00:00:00 2021-02-20 00:00:00 [facility] .84.114 350.1.13.10 4.2.7.2.686 [id number] [facility] 2021-02-12 15:14:35 2021-02-12 15:44:35 Lubrication Servicer Visit 5, [facility] Us Room HollisKota Hassan M [facility] 1..114 350.1.13.10 4.2.7.2.686 [id number] [facility] 2021-02-12 11:00:00 2021-02-12 11:00:00 Outpatient R HOLLIS, ROSMARSHALL [facility] [id number] [facility] 2021-02-12 10:43:45 2021-02-12 10:58:45 Routine Visit Kota Hollis [facility] 1..840.114 350.1.13.10 4.2.7.2.686 [id number] 107 [id number] [facility] 2021-02-12 00:00:00 2021-02-12 00:00:00 Abstract Kota Hollis [facility] 1..840.114 350.1.13.10 4.2.7.2.686 [id number] [facility] 2021-02-03 14:15:00 2021-02-03 14:15:00 Outpatient R MASSIMO JOLLY [facility] [id number] [facility] 2021-01-31 00:00:00 2021-01-31 00:00:00 Telephone Kota Hollis [facility] 1..840.114 350.1.13.10 4.2.7.2.686 [id number] 107 [id number] [facility] 2021-01-24 00:00:00 2021-01-24 00:00:00 Telephone Pcp, Patient Does Not Have A [facility] 1.2.840.114 350.1.13.10 4.2.7.2.686 [id number] 107 [id number] [facility] 2021-01-20 09:11:03 2021-01-20 10:45:38 Initial Visit Parag Hollisgiovanna Kain [facility] 1.2.840.114 350.1.13.10 4.2.7.2.686 [id number] 107 [id number] [facility] 2021-01-20 08:30:00 2021-01-20 08:30:00 Outpatient R JOSÉ MANUEL HOLLISDIANEGiovanna [facility] [id number] [facility] 2021-01-20 00:00:00 2021-01-20 00:00:00 Orders Only Doctor Unassigned, [place] [facility] 1.2.840.114 350.1.13.10 4.2.7.2.686 [id number] [facility] 2021-01-15 00:00:00 2021-01-15 00:00:00 Telephone Padmaja Hollisrose [facility] 1.2.840.114 350.1.13.10 4.2.7.2.686 [id number] [facility] 2020-10-01 00:00:00 2020-10-01 00:00:00 Patient Outreach Kings Pleitez [facility] 1.2.840.114 350.1.13.10 4.2.7.2.686 [id number] 2020-10-01 00:00:00 2020-10-01 00:00:00 Patient Outreach Kings Pleitez [facility] 1.2.840.114 350.1.13.10 4.2.7.2.686 [id number] [facility] 2019-12-05 10:00:00 2019-12-05 10:00:00 Outpatient R MASSIMO JOLLY [facility] [id number] [facility] 2019-11-09 22:54:39 2019-11-10 01:56:00 Emergency Rhys Jacobs [facility] 1.2.840.114 350.1.13.10 4.2.7.2.686 [id number] 2019-11-09 22:54:39 2019-11-10 01:56:00 Emergency Rhys Jacobs [facility] 1.2.840.114 350.1.13.10 4.2.7.2.686 [id number] [facility] 2019-11-09 22:54:39 2019-11-10 01:56:00 Emergency X RHYS JACOBS [facility] E[facility] [id number] [facility] 2019-11-10 00:00:00 2019-11-10 00:00:00 Telephone Unknown, Attending [facility] 1.2.840.114 350.1.13.10 4.2.7.2.686 [id number] 2019-11-10 00:00:00 2019-11-10 00:00:00 Telephone Unknown, Attending [facility] 1.2.840.114 350.1.13.10 4.2.7.2.686 [id number] [facility] 2019-09-05 10:25:30 2019-09-05 11:35:37 Office Visit Tracie Wesley [facility] 1.2.840.114 350.1.13.10 4.2.7.2.686 [id number] 2019-09-05 10:25:30 2019-09-05 11:35:37 Office Visit Tracie Wesley [facility] 1.2.840.114 350.1.13.10 4.2.7.2.686 [id number] [facility] 2019-09-05 10:15:00 2019-09-05 10:15:00 Outpatient R TRACIE WESLEY [facility] [id number] [facility] 2019-09-05 00:00:00 2019-09-05 00:00:00 Orders Only Doctor Unassigned, [place] [facility] 1.2.840.114 350.1.13.10 4.2.7.2.686 [id number] [facility] Results Test Description Test Time Test Comments Results Result Co mments Source [facility] [id number] 14:28:00* Test Item Value Reference Range Interpretation Comme nts POCT PREG (test code = 1605) Negative On board controls acceptable with C Line (test code = 3574) Yes POCT PREG LOT # (test code = 3575) [id number] POCT PREG TEST DATE ( test code = 3576) 09/08/2022 [facility] [id number] 20:58:47* Test Item Value Reference Range Interpretation Comme [facility] Case Report (test code = 8492611548) Surgical Pathology ?Case: [id number] ? Authorizing Provider: ?Robbi Lawrence MD ? Collected: ? 11/04/2021 0824 ?Ordering Location: ? ? [facility] OR ? Received: ?11/04/2021 0915 ? Department ? Pathologist: ? John Topete MD ? Specimen: ? ?BILATERAL FALLOPIAN TUBES, right and left fallopian tubes in one container ? Final Diagnosis (test code = 8395165892) a0ryvUUhOKTtx5yzDCXfaBW uZzEwMzNcZnRuYmpcdWMxIH tccnRmMVxlcGljOTYwMlxhb vUpBLDvkWInZ3UpjaqhTVzg CS1sOP9gqKfxwWRjaWCeQCG dCgDse7loz891lOWyz7lfLW OGhswdeCt5pGglY11vz3S8P bqkE71zcNIlFQC6TUMxLCCm dEZmOJOeWYX0OTZkrTFwS8l jIHBnTW1zdvltWNddNNpdRY GmjBL6GDZxbESpD2FaDJFuF YcsHCSsdqa8IeOyXg4jyLSq eTcyMFxwYXJkXHBsYWluXGZ zMjBccGFyIEEuIEJJTEFURV GKIJRCNFiPF4XBZM1zRIZUA XPiUQNQQ9aFUM7NRiqlMQBn VMFdEQ9bM7MNI0OiM4LDMIo XRsSxB8DqVKbMKYXXEMtFIB lBTiBUVUJFUyBXSVRIIEZJT UJSSUEgSURFTlRJRklFRFxw GJD7y8rbaFUhUBLlpHJoLiP tUCKxUCGcz6yhENEotEEdXs EwMzNcZnRuYmpcdWMxXGRlZ fVgk7vzv356zJAbn5xxDWZt IaK0sZFiCBPyqXfuazc7mJl fLzWuAQOvs6gjfoSlTiZwQG JtGUNlWOXtpAOgK311EMRpG Zsid7xco5DcCSFioNMbt1U9 HNMNRTkcNeUpG048i6gpd3i ktyPsdUE3NUPbBXK0LThyes JuutL2VOazoLAeDcX3AFoao yGgDAdhnxLkasCpNmg3KUVk Z399GXU8bWkud5qwNBE2XMD yTXYeUsjeSc9ifQZkK758HY VzYSBCLXEugVn1DXWjqqSjt xGhfCODw746N783y7neFDKb aiApdPdGydglp8siQ352DWD hcGVydzEyMjQwXHBhcGVyaD G2ICRxQM5wrffmSScdQJekK PNuplH7ORSwiTRpM6DhBVCp IP0zfbgmBHF2UDwiBXCoXLX 5GeVvMJRgy5Ydwyh0VvYbxx 8beb33WZD2c6KmwFddEAS4M AR2LaAkCz0jnVWbPBPlBW7e EjNnuTApXFCwzx64pLznEWq wtlSizN5fFmZaTBLdeJTjVI SxWB5imHQxINCrjG7buuaeD HBnYnJkcmhlYWRccGdicmRy Hu5exLpzYXK3PWtqZ5oaaM5 kLcA1UZomJ7mfhI8ySYy1JP zrrNZ7OONofC1eYV0qgjvko 1slJXvxHAmoAEMascS5gdC2 YZKnuOYlN4KgeC3sBWNwGM6 urlzhg0mdRBS5AFjkCMClIU N3QmObIBAux8Kpcob8XxXus 0OqfWIqGQsnC49da261IPHb qdMfY2jjyOLlopjxlLEpofb gNFcycaT4HXRaGMUlSNkoNC YxXGZzMjBcbGFuZzEwMzNca GljaFxmMVxkYmNoXGYxXGxv I6khUkIiI7FbGIBcIkZnxVN jSGntkPT2XOIlFVKas46hyT v1UFWwehfor5DeNGTxwHPid DIqoR2cboZlc5qbSUQpRKVg YNXvH5CbBCW4kCCvUXQcmAW drQH7ML0wvpUyJE8vTIVqYp kgcmVzaWRlbnRzLCBmZWxsb 1luWG2uKLQkuJyhnP4nrWP1 PLUhq2hueYLtnQVpx6qja3N gbmFtZShzKSBtYXkgYXBwZW RoFB9iTEVlyQIeerAbm6X6V sjsjYDkdllkJqcrknQ2YPcv pukiXEEcZUaeG4yrJsIrDYW ehLcoZyvxl1MiTJYrYPKoQt hccGFyfX0= Clinical Information (test code = 6906880515) Sterilization [Z30.2] Gross Description (test code = 1403381010) n0ouwELwVOUucLSQRBBuL4k rmhXiYMPypIRmM6BkwhnwMS rwDF6uLC7kwDcgbBUwtWKjP G0BHASyXlOdNPCyfUXwiqPa LlVzULOpmMRjyCZ1ZFXvNU7 cfbawROmaFWxuUGMplcJ9KY KevBKxL9IhXLHzFQ1mzztmO PD5OAffyL7mhuXZGueuRr4r dHRibHtcZjFcZmNoYXJzZXQ bRQVtiFrwLNHoPDz3uY4VMs zlEVX4BEEONlflKXBbXD9Wq 8efLBYfwLIlNHW7MUjgfQSh YTCeHVKuGYr9LKJjFKcuyNB dMG2xfLntGaeutSwzf3RpvB BcXGlkIDUxMDAyIFxcZGIgI S5NYrQwCSYuBTkaBNBpMQt9 XHj1PZ4XVvGeRZQwLMW1LHC 9IVJoXGr4DVqfCL0KHTP5TN IbWJZaPdhoQDRvJDBbETl1V DIgXFxmIEFyaWFsIFxcZnMg ZYYlHXdhbHEbVK9zaDqoyRX pblxmczIwIFNQRUNJTUVOIE JujALqFJ1DGHRhCUaaQBJvx BFJZNR7QK8tVEGRRpuhzIAr UMTplOyeGOmkfQ2bCI7EHQv 9usVzYZYbFjKlN5XzG0ubWL 4gQSBpcyByZWNlaXZlZCBpb aBtd5YrTFbmtmVbCBKciBEi IHdpdGggdGhlIHBhdGllbnQ jcgPgTD4wPXAUTKGoiG6xGL IsICJiaWxhdGVyYWwgZmFsb P9xyAZrVRP9UtGtDkAptoYc D04vm7jrwHFqp4JlEiE8guJ at7rjihB0YBAmKvxrNoQpVV SeEFXnRZpit4XrOA7oiJVfK TJaNCafOLCwgDWbxdPwKT9s iLnmEbpkEE6nCJKsSVWqrLZ pbiBkaWFtZXRlciBhbmQgOC 7zKRLoHWvkPCkrwfi3yGLan XYkQpVeK49cuW5zSMwpzPG2 ELGqRsHwTDxkKDMrpbE9BM6 eGMJ2luNkFPGjnHgirJqnyy P7yFCuQKyeehWdIZBiBMQwM 9RtZTExUEU9zkooa8E8aCUp KGK9k3PbYDXfOCXbtQHwtzG mjaAxbRFatCEcwD6etnMnm7 2jLS3lFQMfFSAerJ7rqjivH QTnwXgrEHJ0dSSyZZCgZZRs LLWdkNvsPuKHmSHwm9DoG0l dJD2qvTHze5EbxJZxzNwql3 VjdGlvbmVkIHRvIHJldmVhb YX8KR6zoPyfaeJxwTEgf0Jo TvOdRXOqh5v1vQXuXBRnomO yjC63RRo1sITnBuUnQwViaw VcYB21IVCjukQtU9Blh6Txs 6WemKlghiGbXI5sNYZpwKgg SEPaeQ3luvwpNZZoNOLcbBH yyVR0JAKdpD8bIOIgNOLvDO uxmdHuINemrjBxQ1GuyRxve jQoq3WvNfyvdC5gOCUhWIYs OiBGaXJzdCBtZWFzdXJlZCB 0dWJlLCByZXByZXNlbnRhdG g6ZYFlds0dkj9sVOF3wA2iw tY9lsTjhiBqyLAsPZV3d5Xn MI4cWQTpkYncZPXoNEQiMX6 geXT0zILmnEalu9NkbGynqi SiUQFzsVHaoTAggXAcLN2CZ UZwCWY4UOIrH03eNQXsPLBa iZGhASJ8xGPqXIDyOTXaNHG pblAsmPu7ZMYacg7wom1yLX F5eC1ctpYgitKpXV94wNPqD ZEjpkMksrAmQ5ToUNDjgCJr MED3lD7sVOZycT4jXvpuViL vKTrqFIAkYLqwxVVkHD5AKw YclUUzMYGVkMpzumA6EEBJQ SAoQVNDUClcbGluZSANClxw bGFpblxlcGljTmVzdERvYzB cjVfdrY14HZBrnVJdZBC3KG 4sXZEjtqazTISuXHYlKBI1M FfyvO22dQUgZIWlPMGjsKHk qP4MBHEvRLT6VEuqkF96pWC jQG6MRVKyAYD6MNIgnDTsNJ T3ME2puW0AdP== Disclaimer (test code = 9942946087) e5pddHLmCOXqh3jrHZNhdWM uZzEwMzNcZnRuYmpcdWMxIH eprkYbSUjsw1PnT6IcOtGdQ FxhbnNpXGRlZmxhbmcxMDMz NKQ9lpJhBHMgVZzuEOHvXQq aQc1tvASjySwhVhWdGEQro7 jznwNHCYqpSpMfH551XHDaM Bsnr5qle2ApEMCwtESmw0P1 OIUOthwksMa9jHcfP88rq4O 1LysnW5pzEHGvTBZgI2UzJU 6vNEToDih9OMC9TYX4KBYxQ HNvA0NpAB1mMSXymGMfFNa9 t0nsuBujHNHcPUY3c1ofJTb tdxKyYL9nfs9kiWn8o7dsbw VgDWFtHSExnRZRGUMeP7Pvn CujUu2kmPq2fHxwWuvoFKQ9 Ryq9HC4unc10uyv4wRhzCIC aulkpSuM3ZTraGCJezpxnCM u7MQqkPVWunVQ8PGQxeBQxF 0CuLONvUS4dpzl1XOT3BOeq EONcHhN8KZPaaJNuUFAnsNz oUDcam203JTE0NxGhRD5yO5 Tau2L0uU4qeANsRMTyaRPkC kQsZGOhxz3wqFGbXKwkj2Lo PIY3lhF5bALgtJKaRVIqAS1 9Elpqp7DgVmbkd0TtA97ghB Z4HXsic7idAE0vUeA7umYtT Odic0qwrZ6nQfS2EEgkXK9m SW9lAGCywB5jgbbuOQUkUjU jnvbaTFZxaMkbhrZqGx9wvP seKHX1MSfiC8cogS5pHhU6Q BbsO9xlbW8tAHt3VCsleVY2 SLRffI5oKJ5iylpli9jbCSt mMEnkTWBhrbU6tpA0MWFhlQ NzI9HgdC3bQJYzLP6znnaso 9vlPWZ5IElgDMZsONP0LwRd RPFxy6Oozgg4BeRte0FecJB jHGdzN04ql854OHHuodZmO5 xwbGFpblxwbGFpblxmMFxmc iT5DDUpjoJsn8KpGXYgSFL0 JWmtSVwduILxMSYpiEafo8y aF4EmtRKuLSBbUTnlCAUfHF ZzMjBcbGFuZzEwMzNcaGlja EnpZIhqHcBzWLTkZZjmV9ay CdBiA5JnTRKgGoNimTQyX2r dQDdqxpMiEWZboaEsnJE2YP suQ6q5HLJdhvDrgRv2ukWmA oIeLCAyZBC8XZdpsGZnEWLz y8ZgodowmRHmYd2uuQHqNHX djH8uEQNzJLIjNGjzNE4sbL y1FBJWwBGomQCmFhAEDDIzH N96ssHmRXUViyhkt5D7BHqn DHWwd7FesCMqW5ziw9QpHZX gc47zKG7bh9L0c3ydAQO3ZD 2nm9YbCRXqsLZurORwURIqk 7Vsoalig9CbUTHvuaJjv0Ek ZCBhbmQgaXRzIHBlcmZvcm1 akzRiZPOsRSXhO5ScyngklV gpalCaJQEaiy3cbuVjLWG2Y XTZPEGwMQJkw8MmiG7rlGGC FAD7eASybh7tcmERlXQlXZS lea51CMZkRG5kD3ngWOAyXF BcxlQxpXUoh9PqHWKptZE1p RPxNE6YGcMTq44mIYJtGEUF sfBbIVOcxSmwsBN8mbR6kK3 uIChGREEpLlx+IFRoZSBGRE AmTO0sotWet4TscyKijUbvC CLxnXFdw3TpcCSpy3KwgMbv v8YdkKWwrSIhNZ5tGBXcyfp zBDQmFJHFDwZUUHQrceY0a1 LeNOXnQIVoRNJ0yLzhddb4I YNczB3hGPPzS5nzflktXQen MCZta9AarI4qrDUKnJWpk8S mcMVftSMFiEFoWA3nqqZrCD dQJInYKKS6yhIhWZStm8IfU IwdF5lpO04xaBgueHz2vLW6 EGF6iW7jIun+IFxwYXJccGF yIEFwcHJvcHJpYXRlbHkgcm ZlE6LbzxGjsE6seCCyxrExJ L0wUC6hK8X5uOZvEAFwagAh r8npBMygdkKfNlIioiMmAVY kDMkvNGWso6UdJEteDSJ8HE lucyBpbmNsdWRpbmcgSCZFL MULzRFvyEUmJSC2UQjtyxUz jjAnPK7euR5eaEckeN1mtWQ oqZR7ewpbWJXiTQQunBezFW TiZB7ssITiYWItvzMAiWixb NAhdD3qS3ClXDHpTVOomo9o SMTidJ2eEUsze7AexttvZXN dSUFzARHotkKqbw3hSJBmnV RWHP5XAPfwuAXyx9WmvzNjS 8cMEGA6IBQiXrBnQyeoAWAz gXOgsOGuMLMlfd27ZTPrbD0 upIcnVHTilR6fdE9wjWtxsU 5xKrIrSdRgKVsiBJ9oZNZsY 5dvdHPeUVPpFKQqP5vwDeQk xE2nkStbAUwwKhKsUvShLJn oGJQ1lW== Embedded Images (test code = 5694957890) [facility] This is a pre-surgical type and screen. ONCE [id number] 11:21:13* Test Item Value Reference Range Interpretation Comme nts ABO & RH (test code = 20) O POSITIVE Performed at [facility] Laboratory [facility] - [facility] Blood [address] [address]Aw[address] Free: [phone] No. [id number] IAT (test code = 1185) Negative Performed at [facility] Laboratory [facility] Blood [address] [address]Zoid Free: [phone] No. [id number] [facility] This is a pre-surgical type and screen. ONCE [id number] 11:21:13* Test Item Value Reference Range Interpretation Comme nts ABO & RH (test code = 20) O POSITIVE Performed at [facility] Laboratory Services - [facility] Blood [place] [id number] Free: [phone] No. [id number] IAT (test code = 1185) Negative Performed at [facility] Laboratory Services [facility] Blood [place] [id number] Free: [phone] No. [id number] [facility] WITH [id number] 11:00:40* Test Item Value Reference Range Interpretation Comme nts WBC (test code = 6690-2) See_Comment [Automated messa ge] The system which generated this result transmitted reference range: 4.30 - 11.10 10*3/?L. The reference range was not used to interpret this result as normal/abnormal. RBC (test code = 789-8) See_Comment [Automated messa ge] The system which generated this result transmitted reference range: 3.93 - 5.25 10*6/?L. The reference range was not used to interpret this result as normal/abnormal. HGB (test code = 718-7) 11.9 g/dL 11.6-15.0 HCT (test code = 4544-3) 36.5 % 35.7-45.2 MCV (test code = 787-2) 85.3 fL 80.6-95.5 MCH (test code = 785-6) 27.8 pg 25.9-32.8 MCHC (test code = 786-4) 32.6 g/dL 31.6-35.1 RDW-SD (test code = 04323-2) 43.0 fL 39.0-49.9 RDW-CV (test code = 788-0) 13.8 % 12.0-15.5 PLT (test code = 777-3) See_Comment H [Automated messa ge] The system which generated this result transmitted reference range: 166 - 358 10*3/?L. The reference range was not used to interpret this result as normal/abnormal. MPV (test code = 68262-0) 10.6 fL 9.5-12.9 NRBC/100 WBC (test code = 5734285259) See_Comment [Automated [employer] ssage] The system which generated this result transmitted reference range: 0.0 - 10.0 /100 WBCs. The reference range was not used to interpret this result as normal/abnormal. NRBC x10^3 (test code = 9192561132) <0.01 See_Comment [Automated messa ge] The system which generated this result transmitted reference range: 10*3/?L. The reference range was not used to interpret this result as normal/abnormal. GRAN MAT (NEUT) % (test code = 770-8) 52.6 % IMM GRAN % (test code = 8317962390) 0.20 % LYMPH % (test code = 736-9) 38.7 % MONO % (test code = 5905-5) 5.2 % EOS % (test code = 713-8) 2.6 % BASO % (test code = 706-2) 0.7 % GRAN MAT x10^3(ANC) (test code = 1213653044) 4.92 10*3/uL 1.88-7.09 IMM GRAN x10^3 (test code = 7046037332) <0.03 0.00-0.06 LYMPH x10^3 (test code = 731-0) 3.62 10*3/uL 1.32-3.29 H MONO x10^3 (test code = 742-7) 0.49 10*3/uL 0.33-0.92 EOS x10^3 (test code = 711-2) 0.24 10*3/uL 0.03-0.39 BASO x10^3 (test code = 704-7) 0.07 10*3/uL 0.01-0.07 Lab Interpretation (test code = 24709-5) Abnormal [facility] WITH [id number] 11:00:40* Test Item Value Reference Range Interpretation Comme nts WBC (test code = 6690-2) See_Comment [Automated messa ge] The system which generated this result transmitted reference range: 4.30 - 11.10 10*3/?L. The reference range was not used to interpret this result as normal/abnormal. RBC (test code = 789-8) See_Comment [Automated messa ge] The system which generated this result transmitted reference range: 3.93 - 5.25 10*6/?L. The reference range was not used to interpret this result as normal/abnormal. HGB (test code = 718-7) 11.9 g/dL 11.6-15.0 HCT (test code = 4544-3) 36.5 % 35.7-45.2 MCV (test code = 787-2) 85.3 fL 80.6-95.5 MCH (test code = 785-6) 27.8 pg 25.9-32.8 MCHC (test code = 786-4) 32.6 g/dL 31.6-35.1 RDW-SD (test code = 25978-7) 43.0 fL 39.0-49.9 RDW-CV (test code = 788-0) 13.8 % 12.0-15.5 PLT (test code = 777-3) See_Comment H [Automated messa ge] The system which generated this result transmitted reference range: 166 - 358 10*3/?L. The reference range was not used to interpret this result as normal/abnormal. MPV (test code = 33086-4) 10.6 fL 9.5-12.9 NRBC/100 WBC (test code = 2028555866) See_Comment [Automated [employer] ssage] The system which generated this result transmitted reference range: 0.0 - 10.0 /100 WBCs. The reference range was not used to interpret this result as normal/abnormal. NRBC x10^3 (test code = 0841044888) <0.01 See_Comment [Automated messa ge] The system which generated this result transmitted reference range: 10*3/?L. The reference range was not used to interpret this result as normal/abnormal. GRAN MAT (NEUT) % (test code = 770-8) 52.6 % IMM GRAN % (test code = 1929724067) 0.20 % LYMPH % (test code = 736-9) 38.7 % MONO % (test code = 5905-5) 5.2 % EOS % (test code = 713-8) 2.6 % BASO % (test code = 706-2) 0.7 % GRAN MAT x10^3(ANC) (test code = 5572314084) 4.92 10*3/uL 1.88-7.09 IMM GRAN x10^3 (test code = 4921641722) <0.03 0.00-0.06 LYMPH x10^3 (test code = 731-0) 3.62 10*3/uL 1.32-3.29 H MONO x10^3 (test code = 742-7) 0.49 10*3/uL 0.33-0.92 EOS x10^3 (test code = 711-2) 0.24 10*3/uL 0.03-0.39 BASO x10^3 (test code = 704-7) 0.07 10*3/uL 0.01-0.07 Lab Interpretation (test code = 31771-1) [id number]* Test Item Value Reference Range Interpretation Comme nts POCT PREG (test code = 1605) Negative On board controls acceptable with C Line (test code = 3574) Yes POCT PREG LOT # (test code = 3575) POCT PREG TEST DATE ( test code = 3576) [id number] 10:47:00* Test Item Value Reference Range Interpretation Comme nts POCT PREG (test code = 1605) Negative On board controls acceptable with C Line (test code = 3574) Yes POCT PREG LOT # (test code = 3575) POCT PREG TEST DATE ( test code = 3576) [facility]
[2024-03-11 02:22] LABS: Absolute Basophils 0.1 K/uL (0-0.5); Absolute Eosinophils 0.3 K/uL (0-0.5); Absolute Lymphocytes (CBC) 3.8 K/uL (0.7-4.9); Absolute Monocytes 0.7 K/uL (0.1-1.3); Absolute Neutrophil 5.4 K/uL (1.8-8.0); Basophils % 0.8 % (0-1.3); Eosinophils % 2.6 % (0-4.4); Hematocrit 27.4 % (36.0-45.0); Hemoglobin 8.5 g/dL (12.0-15.0); Lymphocytes % 37.7 % (15.3-44.8); MCH 20.9 pg (27.0-35.0); MCHC 30.9 g/dL (32.0-36.0); MCV 67.5 fL (80-100); MPV 8.8 fL (7.6-11.3); Monocytes % 6.4 % (3.3-12.3); Neutrophils % 52.5 % (41.7-73.7); Platelets 481 thou/uL (152-406); RBC Red Blood Cell Count 4.07 M/uL (3.86-4.86); Red Cell Distribution Width 18.9 % (12.1-15.2); Specific Gravity > 1.030 (1.005-1.030); Sqamous Epithelial <5 /HPF (None Seen); Urine Bacteria None Seen /HPF (<20); Urine Bilirubin 1+ (Negative); Urine Blood Negative (Negative); Urine Clarity Turbid (Clear); Urine Color Dark-Yellow (Yellow); Urine Culture Reflex Order NOT NEEDED; Urine Glucose NEGATIVE (Negative); Urine Ketones NEGATIVE (Negative); Urine Microscopic Reflex YN ORDER UMIC; Urine Mucus Slight /HPF (None Seen); Urine Nitrite 1+ (Negative); Urine Protein TRACE (Negative); Urine RBC None Seen /HPF (None Seen); Urine Urobilinogen 1+ (Normal); Urine WBC <5 /HPF (<5)
[2024-03-11 02:30] LABS: Albumin 3.4 g/dL (3.4-5.0); Albumin/Globulin Ratio 0.9 (1.1-1.8); Anion Gap 7.7 mEq/L (5.0-15.0); Bilirubin Total 0.2 mg/dL (0.2-1.0); Globulin 3.8 g/dL (2.3-3.5); Potassium 3.7 mEq/L (3.5-5.1); Protein, Total 7.2 g/dL (6.4-8.2)
[2024-03-11] MEDS ORDERED: NA CHLORIDE 0.9% 1,000 ML ONE (02:58)
[2024-03-11] MEDS ORDERED: ONDANSETRON 4 MG/2 ML VIAL ONE (02:59)
[2024-03-11] MEDS ORDERED: KETOROLAC 30 MG/ML INJ ONE (03:00)
[2024-03-11] MEDS ORDERED: HYDROCODONE/APAP 5/325 MG TAB ONE ×2 (03:00→03:01)
[2024-03-11 03:10] LABS: Blood Morphology Comment NOTED (NOT SEEN); Hypochromasia 1+; Microcytosis 1+; Platelet Estimate ADEQ; White Blood Cell Scan OK (OK)
--- NOTE | 2024-03-11 04:56 | ER ---
Nurse's Notes [facility] Name: Tawnya García Age: 28 yrs Sex: Female : 1995 Arrival Date: 03/11/2024 Time: 00:19 Bed 19 Private MD: Diagnosis: Iron deficiency anemia, unspecified;Chronic blood loss anemia, right lower back pain, Irregular periods Presentation: 03/11 00:55 Chief complaint: Patient states: pain in right sided lower back and pain with vc1 urination. Coronavirus screen: Client denies travel out of the [place] in the last 14 days. At this time, the client does not indicate any symptoms associated with coronavirus-19. Ebola Screen: Patient negative for fever greater than or equal to 101.5 degrees Fahrenheit, and additional compatible Ebola Virus Disease symptoms Patient denies exposure to infectious person. Patient denies travel to an Ebola-affected area in the 21 days before illness onset. No symptoms or risks identified at this time. Initial Sepsis Screen: Does the patient meet any 2 criteria? No. Patient's initial sepsis screen is negative. Does the patient have a suspected source of infection? No. Patient's initial sepsis screen is negative. Risk Assessment: Do you want to hurt yourself or someone else? Patient reports no desire to harm self or others. Onset of symptoms was March 10, 2024 at 14:00. 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 - Infectious Disease History:: Denies. - Social history:: Smoking status: Reported history of juuling and/or vaping. - Family history:: not pertinent. Screenin:00 [facility] ED Fall Risk Assessment (Adult) History of falling in the last 3 months, rg5 including since admission No falls in past 3 months (0 pts) Confusion or Disorientation No (0 pts) Intoxicated or Sedated No (0 pts) Impaired Gait No (0 pts) Mobility Assist Device Used No (0 pt) Altered Elimination No (0 pt) Score/Fall Risk Level 0 - 2 = Low Risk Oriented to surroundings, Maintained a safe environment, Educated pt \T\ family on fall prevention, incl call for assistance when getting out of bed, Hourly rounding (assess needs \T\ fall precautionary measures) done. Abuse screen: Denies threats or abuse. Nutritional screening: No deficits noted. Tuberculosis screening: No symptoms or risk factors identified. Assessment: 01:00 General: Appears comfortable, Behavior is calm, cooperative, appropriate for age. rg5 01:00 Pain: Complains of pain in back Pain currently is 8 out of 10 on a pain scale. Quality rg5 of pain is described as aching, Pain began 1 day ago. Is continuous, Alleviated by medications. Neuro: Level of Consciousness is awake, alert, obeys commands, Oriented to person, place, time, situation. Cardiovascular: Denies chest pain, shortness of breath. Respiratory: Airway is patent Trachea midline Respiratory effort is even, unlabored, Respiratory pattern is regular, symmetrical. GI: Abdomen is round non-distended. : Reports burning with urination, since YESTERDAY. EENT: No deficits noted. Derm: Skin is intact, Skin is dry, Skin is normal. Musculoskeletal: Range of motion: intact in all extremities. 02:30 Reassessment: No changes from previously documented assessment. Patient and/or family rg5 updated on plan of care and expected duration. Pain level reassessed. Patient is alert, oriented x 3, equal unlabored respirations, skin warm/dry/pink. 03:00 Reassessment: No changes from previously documented assessment. Patient and/or family rg5 updated on plan of care and expected duration. Pain level reassessed. Patient is alert, oriented x 3, equal unlabored respirations, skin warm/dry/pink. 04:22 Reassessment: Patient and/or family updated on plan of care and expected duration. Pain rg5 level reassessed. Patient is alert, oriented x 3, equal unlabored respirations, skin warm/dry/pink. Patient states feeling better. Patient states symptoms have improved. Vital Signs: 00:55 BP 145 / 86; Pulse 72; Resp 16; Temp 98.6; Pulse Ox 100% ; Weight 103.42 kg; Height 5 vc1 ft. 6 in. ; Pain 8/10; 01:00 BP 127 / 81; Pulse 70; Resp 17; Temp 98.3; Pulse Ox 100% on R/A; Pain 8/10; rg5 02:30 BP 121 / 77; Pulse 72; Resp 17; Pulse Ox 100% on R/A; rg5 04:19 BP 108 / 69; Pulse 73; Resp 18; Pulse Ox 99% on R/A; Pain 5/10; rg5 00:55 Body Mass Index 36.80 (103.42 kg, 167.64 cm) vc1 00:55 Pain Scale: Adult vc1 01:00 Pain Scale: Adult rg5 04:19 Pain Scale: Adult rg5 Vitals: 01:00 Cardiac Rhythm Assessment Regular Sinus rhythm. rg5 Prospect Coma Score: 01:00 Eye Response: spontaneous(4). Motor Response: obeys commands(6). Verbal Response: rg5 oriented(5). Total: 15. 06:50 Eye Response: spontaneous(4). Motor Response: obeys commands(6). Verbal Response: sp4 oriented(5). Total: 15. ED Course: 00:22 Patient arrived in ED. ra3 00:27 Howard Brown MD is Attending Physician. sp4 00:58 Triage completed. vc1 00:59 Arm band placed on right wrist. vc1 01:00 Patient has correct armband on for positive identification. Bed in low position. Side rg5 rails up X 1. 01:00 No provider procedures requiring assistance completed. rg5 01:30 Provided Education on: POST ER CARE. Door closed. Noise minimized. Warm blanket given. rg5 01:31 Inserted saline lock: 20 gauge in left antecubital area, using aseptic technique. Blood af3 collected. Flushed with 10 mL NS. 01:31 CRP Sent. af3 01:31 CBC with Diff Sent. af3 01:31 CMP Sent. af3 01:31 Lipase Sent. af3 01:31 Test, Urine Sent. af3 01:31 Urinalysis w/ reflexes Sent. af3 02:05 Giuliano Moses, RN is Primary Nurse. rg5 02:51 CT Abd/Pelvis - IV Contrast Only In Process Unspecified. EDMS 04:54 Ana Araujo MD is Referral Physician. sp4 05:11 IV discontinued, bleeding controlled, Pressure dressing applied. rg5 Administered Medications: 03:10 Drug: Ketorolac IVP 30 mg IVP once Route: IVP; Site: left antecubital; rg5 04:56 Follow up: Response: No adverse reaction rg5 03:10 Drug: Ondansetron IVP 4 mg IVP once; over 2 minutes Route: IVP; Site: left antecubital; rg5 04:55 Follow up: Response: No adverse reaction rg5 03:10 Drug: HYDROcodone-acetaminophen PO 5 mg-325 mg 2 tabs PO once Route: PO; rg5 04:55 Follow up: Response: No adverse reaction; Pain is decreased rg5 03:11 Drug: NS 0.9% IV 1000 ml IV at 1 bolus Per protocol; 1000 mL bolus Route: IV; Rate: 1 rg5 bolus; Site: left antecubital; 04:56 Follow up: Response: No adverse reaction; IV Status: Completed infusion; IV Intake: rg5 1000ml 04:55 Drug: Ibuprofen PO 800 mg PO once Route: PO; rg5 05:09 Follow up: Response: No adverse reaction; Pain is decreased rg5 Medication: 01:00 VIS not applicable for this client. rg5 Intake: 04:56 IV: 1000ml; Total: 1000ml. rg5 Outcome: 04:55 Discharge ordered by . sp4 05:10 Discharged to home ambulatory, rg5 05:10 Condition: stable 05:10 Discharge instructions given to patient, Instructed on discharge instructions, follow up and referral plans. Demonstrated understanding of instructions, follow-up care, medications, Prescriptions given X 3, 05:11 Patient left the ED. rg5 Signatures: Dispatcher [employer] EDMS Aylin Walker RN RN vc1 Howard Brown MD MD sp4 Maribel Ivey ra3 Giuliano Moses RN RN rg5 Luna Mendoza
--- NOTE | 2024-03-11 04:56 | EDPHYS ---
Physician Documentation [facility] Name: Tawnya García Age: 28 yrs Sex: Female : 1995 Arrival Date: 03/11/2024 Time: 00:19 Bed 19 Private MD: ED Physician Howard Brown HPI: 03/11 00:27 This 28 yrs old Female presents to ER via Unassigned with complaints of Low sp4 Back Pain, Pain With Urination. 06:50 8-year-old female presents with lower back pain in the right lower location, also some sp4 pelvic discomfort associated with dysuria. Patient took Azo at home prior to arrival. . 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 - Infectious Disease History:: Denies. - Social history:: Smoking status: Reported history of juuling and/or vaping. - Family history:: not pertinent. ROS: 06:50 Constitutional: Negative for fever, chills, and weight loss, Positive back pain and sp4 disuria 06:50 All other systems are negative, Exam: 06:50 Constitutional: This is a well developed, well nourished patient who is awake, alert, sp4 and in no acute distress. Head/Face: Normocephalic, atraumatic. Eyes: Pupils equal round and reactive to light, extra-ocular motions intact. Lids and lashes normal. Conjunctiva and sclera are not injected. Cornea within normal limits. Periorbital areas with no swelling, redness, or edema. ENT: Nares patent. No nasal discharge, no septal abnormalities noted. Tympanic membranes are normal and external auditory canals are clear. Oropharynx with no redness, swelling, or masses, exudates, or evidence of obstruction, uvula midline. Mucous membranes moist. Neck: Trachea midline, no thyromegaly or masses palpated, and no cervical lymphadenopathy. Supple, full range of motion without nuchal rigidity, or vertebral point tenderness. Chest/axilla: Normal chest wall appearance and motion. Nontender with no deformity. No lesions are appreciated. Cardiovascular: Regular rate and rhythm with a normal S1 and S2. No gallops, murmurs, or rubs. Normal PMI, no JVD. No pulse deficits. Respiratory: Lungs have equal breath sounds bilaterally, clear to auscultation and percussion. No rales, rhonchi or wheezes noted. No increased work of breathing, no retractions or nasal flaring. Abdomen/GI: Soft, with normal bowel sounds. No distension or tympany. No guarding or rebound. No evidence of tenderness throughout. Back: No spinal tenderness. No costovertebral tenderness. Skin: Warm, dry with normal turgor. Normal color with no rashes, no lesions, and no evidence of cellulitis. MS/ Extremity: Pulses equal, no cyanosis. Neurovascular intact. Full, normal range of motion. Neuro: Awake and alert, GCS 15, oriented to person, place, time, and situation. Cranial nerves II-XII grossly intact. Motor strength 5/5 in all extremities. Sensory grossly intact. Psych: Awake, alert, with orientation to person, place and time. Behavior, mood, and affect are within normal limits Vital Signs: 00:55 BP 145 / 86; Pulse 72; Resp 16; Temp 98.6; Pulse Ox 100% ; Weight 103.42 kg; Height 5 vc1 ft. 6 in. ; Pain 8/10; 01:00 BP 127 / 81; Pulse 70; Resp 17; Temp 98.3; Pulse Ox 100% on R/A; Pain 8/10; rg5 02:30 BP 121 / 77; Pulse 72; Resp 17; Pulse Ox 100% on R/A; rg5 04:19 BP 108 / 69; Pulse 73; Resp 18; Pulse Ox 99% on R/A; Pain 5/10; rg5 00:55 Body Mass Index 36.80 (103.42 kg, 167.64 cm) vc1 00:55 Pain Scale: Adult vc1 01:00 Pain Scale: Adult rg5 04:19 Pain Scale: Adult rg5 Karen Coma Score: 01:00 Eye Response: spontaneous(4). Motor Response: obeys commands(6). Verbal Response: rg5 oriented(5). Total: 15. 06:50 Eye Response: spontaneous(4). Motor Response: obeys commands(6). Verbal Response: sp4 oriented(5). Total: 15. MDM: 00:28 Patient medically screened. sp4 04:43 ED course: CLINICAL HISTORY: Abdominal pain. COMPARISON: None. TECHNIQUE: CTABDOMEN sp4 PELVIS WITH IV CONTRAST on 03/11/2024 12:59 AM CDT This exam was performed according to our departmental dose-optimization program, which includes automated exposure control, adjustment of the mA and/or kV according to patient size and/or use of iterative reconstruction technique. FINDINGS: Lower lungs are clear. Abdomen: The liver is normal in appearance. There is no biliary dilatation. The gallbladder contains a tiny calcification. The pancreas and spleen are normal in appearance. The adrenal glands and kidneys are unremarkable. Abdominal aorta is normal in course and caliber without aneurysm. There is no free air. There is no retroperitoneal adenopathy. Pelvis: There is no bowel obstruction. Urinary bladder is unremarkable. There is no free fluid. Uterus is normal in size. Probable appendectomy was performed. Skeleton: There are bilateral L5 pars fractures. IMPRESSION: No acute findings. Electronically signed by: Steve Dunn MD 03/11/2024 03:34 AM. 06:50 Differential diagnosis: arthritis, strain, fracture, sciatica, contusion, Herniated sp4 disc UTI. Data reviewed: vital signs, nurses notes, lab test result(s), radiologic studies, CT scan. Consideration of Admission/Observation Escalation of care including admission/observation considered. ED course: Stable for discharge home . 03/11 00:28 Order name: CBC with Diff; Complete Time: 04:37 sp4 03/11 00:28 Order name: CMP; Complete Time: 02:47 sp4 03/11 00:28 Order name: Lipase; Complete Time: 02:48 sp4 03/11 00:28 Order name: Test, Urine; Complete Time: 02:47 sp4 03/11 00:28 Order name: Urinalysis w/ reflexes; Complete Time: 02:48 sp4 03/11 01:00 Order name: CRP; Complete Time: 02:48 sp4 03/11 02:27 Order name: CBC Smear Scan; Complete Time: 04:37 EDMS 03/11 00:59 Order name: CT Abd/Pelvis - IV Contrast Only sp4 03/11 00:28 Order name: IV Saline Lock; Complete Time: : sp4 03/11 00:28 Order name: Labs collected and sent; Complete Time: sp4 Administered Medications: 03:10 Drug: Ketorolac IVP 30 mg IVP once Route: IVP; Site: left antecubital; rg5 04:56 Follow up: Response: No adverse reaction rg5 03:10 Drug: Ondansetron IVP 4 mg IVP once; over 2 minutes Route: IVP; Site: left antecubital; rg5 04:55 Follow up: Response: No adverse reaction rg5 03:10 Drug: HYDROcodone-acetaminophen PO 5 mg-325 mg 2 tabs PO once Route: PO; rg5 04:55 Follow up: Response: No adverse reaction; Pain is decreased rg5 03:11 Drug: NS 0.9% IV 1000 ml IV at 1 bolus Per protocol; 1000 mL bolus Route: IV; Rate: 1 rg5 bolus; Site: left antecubital; 04:56 Follow up: Response: No adverse reaction; IV Status: Completed infusion; IV Intake: rg5 1000ml 04:55 Drug: Ibuprofen PO 800 mg PO once Route: PO; rg5 05:09 Follow up: Response: No adverse reaction; Pain is decreased rg5 Disposition Summary: 03/11/24 04:55 Discharge Ordered Problem: new sp4 Symptoms: have improved sp4 Condition: Stable sp4 Diagnosis - Iron deficiency anemia, unspecified sp4 - Chronic blood loss anemia, right lower back pain, Irregular periods sp4 Followup: sp4 - With: Ana Araujo MD - When: 7 - 10 days - Reason: Recheck today's complaints Discharge Instructions: - Discharge Summary Sheet sp4 - Iron Deficiency Anemia, Adult sp4 Forms: - Patient Portal Instructions sp4 Prescriptions: - tramadol 100 mg Oral tablet - take 1 tablet ORAL route every 8 hours PRN back pain; 20 tablet; Refills: 0, sp4 Product Selection Permitted - Ibuprofen 800 mg Oral Tablet - take 1 tablet ORAL route every 8 hours As needed take with food; 30 tablet; sp4 Refills: 0, Product Selection Permitted - methocarbamol 750 mg Oral tablet - take 2 tablets ORAL route every 8 hours for 2 days PRN back pain; 60 tablet; sp4 Refills: 0, Product Selection Permitted Signatures: Dispatcher [employer] EDMS Aylin Walker RN RN vc1 Howard Brown MD MD sp4 Giuliano Moses RN RN rg5 Corrections: (The following items were deleted from the chart) 00:59 00:59 Abdomen Pelvis W Con+CT.RAD.BRZ ordered. EDMS EDMS 01:01 01:01 C-REACTIVE PROTEIN+C.LAB.BRZ ordered. EDMS EDMS
[2024-03-11] MEDS ORDERED: IBUPROFEN 400 MG TAB ONE (05:02)
[2024-03-11 05:37] VITALS: TEMP 98.3
[2024-03-11 05:39] VITALS: BP 108/69; O2SAT 99
--- NOTE | 2024-03-13 11:06 | RAD REPORT ---
EXAM DESCRIPTION: CT - Abdomen Pelvis W Contrast - 03/11/2024 6:40 am CLINICAL HISTORY: Abdominal pain. COMPARISON: None. TECHNIQUE: CT ABDOMEN PELVIS WITH IV CONTRAST on 03/11/2024 12:59 AM CDT This exam was performed according to our departmental dose-optimization program, which includes autom ated exposure control, adjustment of the mA and/or kV according to patient size and/or use of iterati ve reconstruction technique. FINDINGS: Lower lungs are clear. Abdomen: The liver is normal in appearance. There is no biliary dilatation. The gallbladder contains a tiny calcification. The pancreas and spleen are normal in appearance. The adrenal glands and kidney s are unremarkable. Abdominal aorta is normal in course and caliber without aneurysm. There is no free air. There is no r etroperitoneal adenopathy. Pelvis: There is no bowel obstruction. Urinary bladder is unremarkable. There is no free fluid. Uteru s is normal in size. Probable appendectomy was performed. Skeleton: There are bilateral L5 pars fractures. IMPRESSION: No acute findings. Electronically signed by: Steve Dunn MD 03/11/2024 03:34 AM CDT RP Due to temporary technical issues with the PACS/Fluency reporting system, reports are being signed by the in house radiologist without review as a courtesy to ensure prompt reporting. The interpreting r adiologist is fully responsible for the content of the report.
== END 2024-03-11 05:11 | disposition home or self-care (01) ==
LOC: ER 00:19
DX: D50.0 Iron deficiency anemia secondary to blood loss (chronic) (principal); N92.6 Irregular menstruation, unspecified
CPT/HCPCS: 96361; 85025; 81001; 36415; 81025; 83690; 80053; 86140; 74177; 96375; 96374; 99284; Q9967; J2405; J7030